=== PATIENT | female | born 1995 | race Caucasian/White ===

== ENCOUNTER 2019-12-27 15:21 | Outpatient (CLI) | payer BC, MEDICAID, SELFPAY ==
--- NOTE | ~2019-12-27 | US_ITS ---
EXAMINATION: US OB /maternal detail EXAM DATE: 12/27/2019 16:27 INDICATION: For anatomy, screening. Second trimester. TECHNIQUE: Pelvic obstetrical transabdominal sonogram was performed by a technologist. There are mu ltiple grayscale and Doppler images available for interpretation. There are no earlier studies of th is gestation for comparison. FINDINGS: There is a single fetus identified in vertex presentation with a heart rate of 159 beats pe r minute. The placenta is located in the anterior position. There is no sonographic evidence of retr oplacental hemorrhage identified. BIOMETRIC DATA: Biparietal diameter (BPD): 5.0cm ----------------> 21 weeks 1 day. Head circumference (HC): 17.5 cm ----------------> 20 weeks 0 days. Abdominal circumference (AC): 14.7 cm ----------> 20 weeks 0 days. Femur length (FL): 3.2 cm --------------------------> 20 weeks 0 days. These measurements are concordant. HC/AC ratio is 1.19 (The 5th -- 95th percentile range is 1.07-1.25. Estimated weight is 330 g +/- 49 g. This is the 33rd percentile when the currently reported cl inical gestation age 20 weeks 2 days, clinical estimated date of delivery (JERRY-OPE) 05/13 is used. Fet al estimated gestational age based on measurements from this exam is also 20 weeks 2 days, with an es timated date of delivery (JERRY-AUA) 05/13. ANATOMIC SURVEY: The following anatomy is identified and is sonographically normal in appearance: Cerebral ventricles Cerebellum Cisterna magna Nuchal fold CTL-spine Four-chamber heart Diaphragm Stomach Kidneys Bladder Three-vessel cord Cord insertion IMPRESSION: 1. Single fetus in vertex presentation with heart rate 159 beats per minute. 2. Estimated weight of 330 grams, 33rd percentile using the currently reported clinical gestat ion age of 20 weeks 2 days, JERRY(OPE) 05/13/2020. 3. Normal anatomic survey. Reviewed, dictated and finalized at location A. IMPRESSION: 1. Single fetus in vertex presentation with heart rate 159 beats per minute. 2. Estimated weight of 330 grams, 33rd percentile using the currently re ported clinical gestation age of 20 weeks 2 days, JERRY(OPE) 05/13/2020. 3. Normal anatomic survey.
== END 2019-12-27 15:22 | disposition home or self-care (01) ==
PROVIDERS: Visit Provider Nurse Practitioner
DX: Z36.9 Encounter for antenatal screening, unspecified (principal); Z3A.20 20 weeks gestation of pregnancy
CPT/HCPCS: 76805

== ENCOUNTER 2020-02-06 15:51 | Outpatient (CLI) | payer BC, MEDICAID, SELFPAY ==
[2020-02-06 17:32] LABS: Hematocrit 36.1 % (37.0-47.0); Hemoglobin 12.2 g/dL (12.0-15.0)
[2020-02-06 17:43] LABS: Glucose 1 Hour PP 50gm Dose 104 mg/dL
[2020-02-06 18:22] LABS: Vitamin D 25 Hydroxy 47.1 ng/mL
[2020-02-06 18:43] LABS: HIV 1/2 Ab P24 Ag Result Negative (Negative)
== END 2020-02-06 15:52 | disposition home or self-care (01) ==
PROVIDERS: PCP Internal Medicine; Visit Provider Obstetrics & Gynecology Gynecology
DX: Z34.03 Encounter for supervision of normal first pregnancy, third trimester (principal); Z3A.00 Weeks of gestation of pregnancy not specified
CPT/HCPCS: 36415; 82306; 82947; 85014; 85018; 86703; G0432

== ENCOUNTER 2020-03-27 10:36 | Observation (INO) | payer BC, MEDICAID, SELFPAY ==
[2020-03-27 11:15] VITALS: BMI 33.8
--- NOTE | 2020-03-27 11:15 | OBADM ---
This patient, Amber Gaytan, admitted to the OB room 117 at 1036 for observation due to vaginal spotting. Patient/family oriented to hospital policies and general routines including ID bracelet, bed and alarms, visiting hours, pain management, procedures, bathroom and other care routines, personal items, smoking policy, room service/diet, and visiting hours. Patient/Family are encouraged to report perceived risks to care and to ask questions if they do not understand what they are told or what they should do.
[2020-03-27 11:25] VITALS: BP 107/61; PULSE 74; RESP 16; TEMP 36.7
--- NOTE | 2020-04-17 13:47 | PM.OBTRLD ---
OB - Triage/Final Diagnosis Final Diagnosis (1) Spotting affecting : Code(s): O26.859 - Spotting complicating , unspecified trimester Status: Acute
== END 2020-03-27 11:57 | disposition home or self-care (01) ==
PROVIDERS: Admitting Provider Obstetrics & Gynecology; PCP Internal Medicine; Visit Provider Obstetrics & Gynecology
DX: O26.859 Spotting complicating pregnancy, unspecified trimester (principal); Z3A.00 Weeks of gestation of pregnancy not specified
CPT/HCPCS: G0378; G0379

== ENCOUNTER 2020-05-06 17:49 | Inpatient (IN) | payer BC, MEDICAID, SELFPAY ==
[2020-05-06 18:18] VITALS: BP 117/57; PULSE 95
[2020-05-06 18:32] VITALS: BMI 35.0
--- NOTE | 2020-05-06 18:33 | LDADM ---
This patient, Amber Gaytan, was admitted to Labor/Delivery/Recovery 107 on 05/06/20 at 17:49. Plans for labor, pain management and were discussed with patient. Patient/family oriented to hospital policies and general routines including ID bracelet, bed and alarms, visiting hours, pain management, procedures, bathroom and other care routines, personal items, smoking policy, room service/diet and guest tray routines, infant security routines, and visiting hours. Patient/Family are encouraged to report perceived risks to care and to ask questions if they do not understand what they are told or what they should do. See OBIX for further documentation.
[2020-05-06 18:47] LABS: Basophils Percent Auto 0.4 % (0.2-1.2); Eosinophils Absolute Auto 0.1 K/mm3 (0-0.3); Eosinophils Percent Auto 0.6 % (0-4.4); Hematocrit 33.4 % (37.0-47.0); Hemoglobin 11.6 g/dL (12.0-15.0); Immature Granulocyte Absolute 0.15 K/mm3 (0.00-0.031); Immature Granulocyte Percent A 1.6 % (0-0.5); Lymphocytes Absolute Auto 1.71 K/mm3 (0.9-3.2); Lymphocytes Percent Auto 18.3 % (18.3-44.2); Mean Corpuscular HGB Conc 34.7 g/dl (32-36); Mean Corpuscular Hemoglobin 31.7 pg (26-34); Mean Corpuscular Volume 91.3 fl (80-100); Mean Platelet Volume 9.3 fl (7.4-10.4); Monocytes Absolute Auto 0.8 K/mm3 (0.1-0.6); Monocytes Percent Auto 8.9 % (2.6-8.5); Neutrophils Absolute Auto 6.6 K/mm3 (1.3-6.7); Neutrophils Percent Auto 70.2 % (45.5-73.1); Platelet Count Result 378 k/mm3 (150-375); Red Blood Count 3.66 M/mm3 (4.2-5.4); Red Cell Distribution Width 12.8 % (11.5-14.5); White Blood Count 9.3 K/mm3 (4.5-10.0)
[2020-05-06] MEDS: AMPICILLIN 2 GM/NS 100 ML 2 GM/100 ML BAG IVPB (18:56)
[2020-05-06] MEDS: LACTATED RINGERS 1,000 ML 125 ML IV CONT (18:56)
[2020-05-06] MEDS: DINOPROSTONE 10 MG VAG INSERT VAGINAL (18:58)
[2020-05-06 19:01] VITALS: BP 122/65; PULSE 89
[2020-05-06 20:00] VITALS: TEMP 36.6
[2020-05-06 21:01] VITALS: BP 110/53; PULSE 60
[2020-05-06 22:40] VITALS: BP 114/67; PULSE 71
[2020-05-07] VITALS (71 sets, daily range): BP systolic 90–123; BP diastolic 34–79; PULSE 49–179; RESP 16; TEMP 36.6–37.6; O2SAT 99–100
[2020-05-07] MEDS: AMPICILLIN 1 GM/NS 50 ML 1 GM/50 ML BAG IVPB ×3 (00:35→09:00)
[2020-05-07 08:12] LABS: Rapid Plasma Reagin Non-Reactive (NonReactive)
[2020-05-07] MEDS: LACTATED RINGERS 1,000 ML 125 ML IV CONT (08:27)
[2020-05-07] MEDS: OXYTOCIN 30 UNITS/NS 500 ML 30 UNITS/500 ML BAG 6 UNITS IV CONT (08:31)
--- NOTE | 2020-05-07 08:52 | WPDANESEPP ---
Anes - Eval Pre Procedure Procedure: labor epidural Date/Time: 05/07/20 08:52 Preop Diagnosis: labor pain Pre Op Diagnosis: Induction of Labor Patient Data Age: 24 Gender: F Height: 5 ft 2 in Weight: 87 kg Last Vital Signs Temp 36.7 C 05/07/20 06:27 Pulse 59 L 05/07/20 05:18 BP 109/64 05/07/20 05:18 Pulse Ox 100 05/07/20 08:51 Allergies Allergy/AdvReac Type Severity Reaction Status Date / Time No Known Allergies Allergy Verified 04/13/20 13:33 Home Medications Medication Instructions Recorded Confirmed Type PNV cmb#95-ferrous fumarate-FA 1 tablet PO DAILY 03/27/20 03/27/20 History [] Laboratory Tests 05/06/20 05/06/20 05/06/20 18:30 18:30 18:30 WBC 9.3 K/mm3 K/mm3 (4.5-10.0) RBC 3.66 M/mm3 L M/mm3 (4.2-5.4) Hgb 11.6 g/dL L g/dL (12.0-15.0) Hct 33.4 % L % (37.0-47.0) MCV 91.3 fl fl (80-100) MCH 31.7 pg pg (26-34) MCHC 34.7 g/dl g/dl (32-36) RDW 12.8 % % (11.5-14.5) Plt Count 378 k/mm3 H k/mm3 (150-375) MPV 9.3 fl fl (7.4-10.4) Immature Gran % (Auto) 1.6 % H % (0-0.5) Neut % (Auto) 70.2 % % (45.5-73.1) Lymph % (Auto) 18.3 % % (18.3-44.2) [place] % (Auto) 8.9 % H % (2.6-8.5) Eos % (Auto) 0.6 % % (0-4.4) Baso % (Auto) 0.4 % % (0.2-1.2) Lymph # (Auto) 1.71 K/mm3 K/mm3 (0.9-3.2) [place] # (Auto) 0.8 K/mm3 H K/mm3 (0.1-0.6) Eos # (Auto) 0.1 K/mm3 K/mm3 (0-0.3) Baso # (Auto) 0.0 K/mm3 K/mm3 (0.0-0.1) Abs Immat Gran (auto) 0.15 K/mm3 H K/mm3 (0.00-0.031) Absolute Neuts (auto) 6.6 K/mm3 K/mm3 (1.3-6.7) Absolute Nucleated RBC 0.0 K/mm3 K/mm3 (0.0-0.012) Nucleated RBC % 0.0 % % (0.0-0.2) RPR Non-reactive (NonReactive) Blood Type O Positive Antibody Screen Negative Patient hx anesthesia problems: none Family hx anesthesia problems: none [facility] Past Medical History Medical History (Updated 04/17/20 @ 13:48 by Osbaldo Richards MD) Spotting affecting Family History Family History (Updated 04/13/20 @ 13:33 by Ban West RN) Other Unknown family medical history Social History Social History Smoking status: Never smoker Substance use: never Spiritual care concerns: No Exam Day of Procedure 05/07/20 08:52
--- NOTE | 2020-05-07 08:57 | WPDOBADMIT ---
Obstetrics - Admit Note Admission Note: record reviewed. No pertinent additions to the history and/or any subsequent changes in the physical findings that are not consistent with the expected course of the were found. Additions to the history and/or subsequent changes in the physical findings follow. None Here for MIL at 39 wks. Cervix 2/100/-2 AROM with clear fluid. FHTs reactive.
--- NOTE | 2020-05-07 12:23 | P.PCNOB_ITS ---
OB - Delivery Note Procedure Delivery date: 05/07/20 Procedure: events: Labor Induction Intrapartal events: None Induction method: AROM and per pitocin protocol Delivery monitor: external FHT and external uterine Route of delivery: Laceration description: Perineal - 2nd Degree Delivery repair: vicryl (3-0) Specimen: No Estimated blood loss (mL): 300 Anesthesia type: Epidural Disposition: floor [place] Baby Date of : 05/07/20 Weeks of gestation at delivery: 39 Infant gender: Male presentation: vertex position: Right Occiput Anterior Placenta delivery description: Spontaneous cord vessel description: 3 Vessels and Nuchal Cord score one minute: 8 score five minutes: 9
--- NOTE | 2020-05-07 12:25 | P.DS_ITS ---
DS: Admitting Diagnosis Admitting Diagnosis Admitting Diagnosis: Induction of Labor 39 wks DS: Discharge Diagnosis Discharge Diagnosis (1) (normal spontaneous vaginal delivery): Code(s): O80 - Encounter for full-term uncomplicated delivery Status: Acute (2) 39 weeks gestation of : Code(s): Z3A.39 - 39 weeks gestation of Status: Acute OB - DS: Summary OB Procedures : Ultrasound OB Procedures Intrapartum: Spontaneous Vag Delivery OB Procedures: : None Peripartum Data Delivery Method: Natural Vaginal Laceration description: Perineal - 2nd Degree complications: none Status at Discharge Functional status at discharge: independent ambulation Overall status at discharge: patient is progressing back to baseline Time Spent with Patient Time attestation: Total time spent providing and/or coordinating discharge services: DS: Data Data Completed and Pending Labs on day of discharge: Labs from last 24 hours 05/06/20 05/06/20 05/06/20 18:30 18:30 18:30 WBC 9.3 RBC 3.66 L Hgb 11.6 L Hct 33.4 L MCV 91.3 MCH 31.7 MCHC 34.7 RDW 12.8 Plt Count 378 H MPV 9.3 Immature Gran % (Auto) 1.6 H Neut % (Auto) 70.2 Lymph % (Auto) 18.3 [place] % (Auto) 8.9 H Eos % (Auto) 0.6 Baso % (Auto) 0.4 Lymph # (Auto) 1.71 [place] # (Auto) 0.8 H Eos # (Auto) 0.1 Baso # (Auto) 0.0 Abs Immat Gran (auto) 0.15 H Absolute Neuts (auto) 6.6 Absolute Nucleated RBC 0.0 Nucleated RBC % 0.0 RPR Non-reactive Blood Type O Positive Antibody Screen Negative Discharge Plan Discharge Attending physician on discharge: Raina Gan Discharging Clinician: Raina Gan Anticipated Discharge Date/Time: 05/09/20 12:26 Patient Disposition: Home, Self-Care Activity: pelvic rest Diet: regular Patient Instructions: Antibiotic Form Stand Alone Forms: General Discharge Information Follow-up/Referrals: Raina Gan MD [Physician] - 6 Weeks Discharge Medications: No Action PNV cmb#95-ferrous fumarate-FA [] 28 mg iron- 800 mcg Tablet 1 tablet PO DAILY RF: 0 Date of admission: 05/06/20 17:49 Primary Care Provider: Maranda,Jem Fan Admitting Provider: Raina Gan Attending physician on admission: Raina Gan Condition: Stable
[2020-05-07] MEDS: OXYTOCIN 30 UNITS/NS 500 ML 30 UNITS/500 ML BAG 125 UNITS IV CONT (12:52)
--- NOTE | 2020-05-07 15:00 | PC.NURSE ---
Patient transferred to post room #285 via (wheelchair). Support person present. Oriented to unit, room, information board, rooming in, admission packet and security measures. Patient verbalizes understanding.
[2020-05-07] MEDS: ACETAMINOPHEN 325 MG TABLET 650 MG PO (19:55)
[2020-05-07] MEDS: IBUPROFEN 600 MG TABLET PO (19:55)
[2020-05-08] MEDS: IBUPROFEN 600 MG TABLET PO ×3 (05:02→17:17)
[2020-05-08] MEDS: ACETAMINOPHEN 325 MG TABLET 650 MG PO (05:02)
[2020-05-08 05:14] LABS: Hematocrit 28.9 % (37.0-47.0); Hemoglobin 9.8 g/dL (12.0-15.0)
[2020-05-08 09:25] VITALS: BP 122/59; PULSE 69; RESP 18; TEMP 36.2
[2020-05-08] MEDS: DOCUSATE SODIUM 100 MG CAPSULE PO ×2 (10:13→17:16)
[2020-05-08] MEDS: POLYSACCHARIDE IRON COMPLEX 150 MG CAPSULE PO ×2 (10:13→17:16)
--- NOTE | 2020-05-08 10:57 | WPDANLDPN2 ---
Anes-Prog Note L&D Date/Time: 05/08/20 10:57 Comfortable throughout: labor and delivery Neuraxial method: epidural Epidural/Spinal procedure site: clean & non-tender Neuro status: Neuro function grossly intact. Cardiovascular status: normal Respiratory status: normal Airway patency: baseline Mental status: baseline Post-Op hydration status: normal Vital Signs: Last Vital Signs Temp 36.2 C L 05/08/20 09:25 Pulse 69 05/08/20 09:25 Resp 18 05/08/20 09:25 BP 122/59 L 05/08/20 09:25 Pulse Ox 99 05/07/20 15:02 I/O: Intake & Output 05/07/20 05/08/20 05/08/20 23:59 07:59 15:59 Intake Total 500 Balance 500 Patient feedback: Patient satisfied with anesthetic care.
[2020-05-08] MEDS: MEASLES,MUMPS,RUBELLA VACCINE 0.5 ML VIAL SUB-Q (15:36)
[2020-05-08 19:58] VITALS: BP 104/51; PULSE 69; RESP 16; TEMP 36.6
[2020-05-09 07:55] VITALS: BP 123/66; PULSE 75; RESP 16; TEMP 36.9; O2SAT 99
[2020-05-09] MEDS: POLYSACCHARIDE IRON COMPLEX 150 MG CAPSULE PO (08:00)
[2020-05-09] MEDS: IBUPROFEN 600 MG TABLET PO (08:00)
[2020-05-09] MEDS: DOCUSATE SODIUM 100 MG CAPSULE PO (08:00)
--- NOTE | 2020-05-09 13:36 | PM.OBPNVD ---
OB - PN: Subj Subjective Date/time seen: 05/09/20 13:36 Patient comments: no complaints baby status: doing well OB - PN: Obj Data Labs CBC & Chem 7: 05/08/20 05:00 OB - PN A/P Plan day: 2 Plan: routine care, discharge home and follow up 6 weeks Comments: declines bc Time Spent With Patient Time: Total time spent is greater than 50% in coordination of care (as documented) at patient's floor/unit and/or counseling patient: Exam : Bimanual exam- vagina & uterus: other (Uterus firm, nt @U)
[2020-05-10 10:38] VITALS: BP 117/72; PULSE 73; RESP 20; O2SAT 100
== END 2020-05-09 11:58 | disposition home or self-care (01) | DRG 807 ==
LOC: ANHLDR 05-07 12:26 → ANHOB2 05-07 15:03
PROVIDERS: Admitting Provider Obstetrics & Gynecology Gynecology; PCP Internal Medicine; Visit Provider Obstetrics & Gynecology Gynecology
DX: O99.824 Streptococcus B carrier state complicating childbirth (principal); Z37.0 Single live birth; Z3A.39 39 weeks gestation of pregnancy; O36.8330 Maternal care for abnormalities of the fetal heart rate or rhythm, third trimester, not applicable or unspecified; O70.1 Second degree perineal laceration during delivery; O69.81X0 Labor and delivery complicated by cord around neck, without compression, not applicable or unspecified
CPT/HCPCS: 36415; 85014; 85018; 85025; 86592; 86850; 86900; 86901; 90710; A9270; J0290; J2590; J2795; J3010; J7120

== ENCOUNTER 2021-02-21 21:55 | Observation (INO) | payer OTHER, SELFPAY ==
--- NOTE | 2021-02-21 21:55 | OBADM ---
This patient, Amber Gaytan, admitted to the OB room Labor/Delivery/Recovery 105 for observation. Patient/family oriented to hospital policies and general routines including ID bracelet, bed and alarms, visiting hours, pain management, procedures, bathroom and other care routines, personal items, smoking policy, room service/diet, and visiting hours. Patient/Family are encouraged to report perceived risks to care and to ask questions if they do not understand what they are told or what they should do.
[2021-02-21 22:10] VITALS: BMI 38.5
[2021-02-21 22:13] VITALS: RESP 18; TEMP 36.7
--- NOTE | 2021-02-22 07:07 | PM.OBTRLD ---
OB - Triage/Final Diagnosis Visit Information Date of evaluation: 02/21/21 Reason for evaluation: threatened labor Comments/Additional reasons for admission: I have assessed the risk for this patient, Amber Gaytan, and determined that she would benefit from observation care. Evaluation Vital signs: Vital Signs - 24 hr 02/21/21 22:13 Temperature 36.7 C Respiratory Rate 18
== END 2021-02-21 23:04 | disposition home or self-care (01) ==
PROVIDERS: Admitting Provider Student in an Organized Health Care Education/Training Program; Visit Provider Student in an Organized Health Care Education/Training Program
DX: O47.03 False labor before 37 completed weeks of gestation, third trimester (principal); Z3A.33 33 weeks gestation of pregnancy
CPT/HCPCS: G0378; G0379

== ENCOUNTER 2021-03-18 15:30 | Outpatient (RCR) | payer OTHER, SELFPAY ==
[2021-02-13 18:25] VITALS: BP 121/79; PULSE 103
[2021-02-20 16:21] VITALS: BP 117/61; PULSE 95
[2021-02-25 16:34] VITALS: BP 120/62; PULSE 97
[2021-03-04 16:33] VITALS: BP 118/71; PULSE 97
[2021-03-10 17:03] VITALS: BP 127/71; PULSE 84
[2021-03-10 17:06] LABS: Basophils Percent Auto 0.4 % (0.2-1.2); Eosinophils Absolute Auto 0.1 K/mm3 (0-0.3); Eosinophils Percent Auto 0.9 % (0-4.4); Hematocrit 33.8 % (37.0-47.0); Hemoglobin 10.9 g/dL (12.0-15.0); Immature Granulocyte Absolute 0.21 K/mm3 (0.00-0.031); Immature Granulocyte Percent A 2.7 % (0-0.5); Lymphocytes Absolute Auto 1.21 K/mm3 (0.9-3.2); Lymphocytes Percent Auto 15.6 % (18.3-44.2); Mean Corpuscular HGB Conc 32.2 g/dl (32-36); Mean Corpuscular Hemoglobin 29.1 pg (26-34); Mean Corpuscular Volume 90.4 fl (80-100); Mean Platelet Volume 9.6 fl (7.4-10.4); Monocytes Absolute Auto 0.8 K/mm3 (0.1-0.6); Monocytes Percent Auto 9.7 % (2.6-8.5); Neutrophils Absolute Auto 5.5 K/mm3 (1.3-6.7); Neutrophils Percent Auto 70.7 % (45.5-73.1); Nucleated Red Blood Cells Perc 0.3 % (0.0-0.2); Platelet Count Result 299 k/mm3 (150-375); Red Blood Count 3.74 M/mm3 (4.2-5.4); Red Cell Distribution Width 17.6 % (11.5-14.5); White Blood Count 7.8 K/mm3 (4.5-10.0)
[2021-03-10 17:22] LABS: Add Urine Microscopic? YES; Appearance Urine Cloudy (Clear); Bacteria Urine 1+ /hpf; Bilirubin Urine Negative (Negative); Blood Urine Negative (Negative); Color Urine Yellow (Yellow); Glucose Urine UA Negative (Negative); Ketones Urine Negative (Negative); Leukocyte Esterase Ur Negative LEU/UL (NEGATIVE); Mucus Urine Rare /lpf; Nitrate Urine Negative (Negative); Protein Urine 1+ mg/dL (Negative); RBC Urine 0-2 /hpf (0-2); Specific Grav Ur 1.015 (1.001-1.035); Squamous Epithelial Cell Urine Few /hpf (Few); Urobilinogen Urine Negative mg/dL (<2.0)
[2021-03-10 17:23] LABS: Alanine Aminotransferase 19 U/L (4-35); Albumin Level 3.3 g/dL (3.5-5.1); Alkaline Phosphatase 154 U/L (38-126); Anion Gap 6 mmol/L (8-16); Aspartate Amino Transferase 29 U/L (14-36); Bilirubin,Total 0.3 mg/dL (0.2-1.3); Blood Urea Nitrogen 6 mg/dL (7-17); Carbon Dioxide 21 mmol/L (22-30); Chloride 106 mmol/L (98-107); Estimated Glomerular Filt Rate > 60; Glucose 101 mg/dL (65-105); Potassium 3.7 mmol/L (3.4-5.0); Sodium 133 mmol/L (137-145); Uric Acid 3.6 mg/dL (2.5-7.5)
[2021-03-10 17:34] LABS: Creatinine Urine 108.5 mg/dL; Total Protein Urine Random 22 mg/dL
--- NOTE | 2021-03-10 17:42 | PC.NURSE ---
Dr. Hart returned call and informed of reactive NST, lab results, and BP's. OK for pt to go home. Pt given preeclampsia precautions, handout given, and routine NST instructions. Pt verbalizes understanding.
[2021-03-18 16:17] VITALS: BP 123/64; PULSE 73
== END 2021-03-26 08:03 | disposition home or self-care (01) ==
LOC: ANHOBOP 15:30
PROVIDERS: Visit Provider Student in an Organized Health Care Education/Training Program
DX: O30.003 Twin pregnancy, unspecified number of placenta and unspecified number of amniotic sacs, third trimester (principal); Z3A.32 32 weeks gestation of pregnancy; Z3A.33 33 weeks gestation of pregnancy; Z3A.34 34 weeks gestation of pregnancy; Z3A.35 35 weeks gestation of pregnancy; Z3A.37 37 weeks gestation of pregnancy
CPT/HCPCS: 36415; 59025; 80053; 81001; 82570; 84156; 84550; 85025; 87086

== ENCOUNTER 2021-03-25 05:00 | Inpatient (IN) | payer OTHER, SELFPAY ==
[2021-03-25] VITALS (202 sets, daily range): BP systolic 97–156; BP diastolic 36–90; PULSE 61–162; RESP 16–18; TEMP 36.3–36.9; O2SAT 89–100; BMI 40.3
--- NOTE | 2021-03-25 05:28 | LDADM ---
This patient, Amber Gaytan, was admitted to Labor/Delivery/Recovery 102 on 03/25/21 at 05:00. Plans for labor, pain management and were discussed with patient. Patient/family oriented to hospital policies and general routines including ID bracelet, bed and alarms, visiting hours, pain management, procedures, bathroom and other care routines, personal items, smoking policy, room service/diet and guest tray routines, security routines, and visiting hours. Patient/Family are encouraged to report perceived risks to care and to ask questions if they do not understand what they are told or what they should do. See OBIX for further documentation.
[2021-03-25] MEDS: OXYTOCIN 30 UNITS/NS 500 ML 30 UNITS/500 ML BAG IV CONT (05:40)
[2021-03-25] MEDS: LACTATED RINGERS 1,000 ML 125 ML IV CONT ×3 (05:40→09:00)
[2021-03-25 05:51] LABS: Basophils Percent Auto 0.5 % (0.2-1.2); Eosinophils Absolute Auto 0.1 K/mm3 (0-0.3); Eosinophils Percent Auto 1.2 % (0-4.4); Hematocrit 34.1 % (37.0-47.0); Hemoglobin 10.8 g/dL (12.0-15.0); Immature Granulocyte Absolute 0.13 K/mm3 (0.00-0.031); Immature Granulocyte Percent A 1.6 % (0-0.5); Lymphocytes Absolute Auto 1.68 K/mm3 (0.9-3.2); Lymphocytes Percent Auto 20.3 % (18.3-44.2); Mean Corpuscular HGB Conc 31.7 g/dl (32-36); Mean Corpuscular Hemoglobin 28.8 pg (26-34); Mean Corpuscular Volume 90.9 fl (80-100); Monocytes Absolute Auto 0.8 K/mm3 (0.1-0.6); Monocytes Percent Auto 9.2 % (2.6-8.5); Neutrophils Absolute Auto 5.6 K/mm3 (1.3-6.7); Neutrophils Percent Auto 67.2 % (45.5-73.1); Nucleated Red Blood Cells Perc 0.2 % (0.0-0.2); Platelet Count Result 341 k/mm3 (150-375); Red Blood Count 3.75 M/mm3 (4.2-5.4); Red Cell Distribution Width 16.2 % (11.5-14.5); White Blood Count 8.3 K/mm3 (4.5-10.0)
--- NOTE | 2021-03-25 06:51 | WPDHPUPDATE1 ---
History and Physical Update Update Date/Time: 03/25/21 10:51 25 yo at 38w0d with Di/Di twin who presents for IOL. SHe denies any regular contractions, vaignal bleeding or leakage of fluid. She endorses good movement x2. History and Physical has been reviewed, including an updated exam of the patient. There are NO changes in the patient's condition. Risks, benefits, and alternatives have been discussed and questions answered. Patient agrees to proceed with procedure. A/P: 25 yo at 38w0d Di/Di twin EFW: baby A: 2834 g Baby B: 2720 g (03/18/21) admit to L&D routine admission orders Rh+ GBS neg vtx/vtx presentation of BSUS cvx /-3 plan for pitocin induction continuous EFM
--- NOTE | 2021-03-25 07:46 | P.PNAN_ITS ---
Anes - Eval Pre Procedure Procedure: labor epidural Date/Time: 03/25/21 07:46 Surgeon: ralf Preop Diagnosis: pain during labor Pre Op Diagnosis: Induction of Labor Patient Data Age: 25 Gender: F Height: 1.57 m Weight: 100 kg Last Vital Signs Temp 36.3 C L 03/25/21 05:25 Pulse 104 H 03/25/21 07:44 Resp 18 03/25/21 05:25 BP 123/55 L 03/25/21 07:44 Pulse Ox 98 03/25/21 07:44 Allergies Allergy/AdvReac Type Severity Reaction Status Date / Time No Known Allergies Allergy Verified 04/13/20 13:33 Home Medications Medication Instructions Recorded Confirmed Type PNV cmb#95-ferrous fumarate-FA 1 tablet PO DAILY 02/21/21 03/13/21 History [] nygqsnsnsy-ognhceqbjnbtg-sbyh 1 tablet PO Q6H PRN 02/21/21 03/13/21 History ferrous sulfate 325 mg PO DAILY 02/21/21 03/13/21 History Laboratory Tests 03/25/21 03/25/21 05:41 05:41 WBC 8.3 K/mm3 K/mm3 (4.5-10.0) RBC 3.75 M/mm3 L M/mm3 (4.2-5.4) Hgb 10.8 g/dL L g/dL (12.0-15.0) Hct 34.1 % L % (37.0-47.0) MCV 90.9 fl fl (80-100) MCH 28.8 pg pg (26-34) MCHC 31.7 g/dl L g/dl (32-36) RDW 16.2 % H % (11.5-14.5) Plt Count 341 k/mm3 k/mm3 (150-375) MPV 10.0 fl fl (7.4-10.4) Immature Gran % (Auto) 1.6 % H % (0-0.5) Neut % (Auto) 67.2 % % (45.5-73.1) Lymph % (Auto) 20.3 % % (18.3-44.2) [place] % (Auto) 9.2 % H % (2.6-8.5) Eos % (Auto) 1.2 % % (0-4.4) Baso % (Auto) 0.5 % % (0.2-1.2) Lymph # (Auto) 1.68 K/mm3 K/mm3 (0.9-3.2) [place] # (Auto) 0.8 K/mm3 H K/mm3 (0.1-0.6) Eos # (Auto) 0.1 K/mm3 K/mm3 (0-0.3) Baso # (Auto) 0.0 K/mm3 K/mm3 (0.0-0.1) Abs Immat Gran (auto) 0.13 K/mm3 H K/mm3 (0.00-0.031) Absolute Neuts (auto) 5.6 K/mm3 K/mm3 (1.3-6.7) Absolute Nucleated RBC 0.0 K/mm3 K/mm3 (0.0-0.012) Nucleated RBC % 0.2 % % (0.0-0.2) RPR Pending Patient hx anesthesia problems: none Family hx anesthesia problems: none [facility] Past Medical History Medical History (Updated 05/07/20 @ 12:25 by Raina Gan MD) Spotting affecting Family History Family History Other Unknown family medical history Social History Social History Smoking status: Never smoker Substance use: never Gender identity (if verbalized by the patient): Female Spiritual care concerns: No Exam Day of Procedure 03/25/21 07:46
--- NOTE | 2021-03-25 08:41 | PM.OBPNLAB ---
Pain Control Date/time seen: 03/25/21 0840 Pain control: epidural Pelvic Exam Dilation (cm): 5 Effacement (%): 70 station: -3 Amniotic membrane status: Intact Contractions Monitor mode: External Status status: Category l (x2) Assessment and Plan Pitocin rate (mU/min): 8 Assessment: induction ongoing Plan: begin patient augmentation (AROM for clear fluid, IUPC placed)
[2021-03-25 10:04] LABS: Rapid Plasma Reagin Non-Reactive (NonReactive)
[2021-03-25] MEDS: LORATADINE 10 MG TABLET PO (10:24)
--- NOTE | 2021-03-25 18:45 | P.PCNOB_ITS ---
OB - Delivery Note Procedure Delivery date: 03/25/21 Intrapartal events: None Induction method: per misoprostol protocol Delivery augmentation: rupture of membranes Delivery monitor: external FHT and internal uterine Route of delivery: Episiotomy description: None Laceration Description: Perineal - 2nd Degree Delivery repair: vicryl Specimen: Yes (placenta x2) Quantitative Blood Loss (ml): 350 Anesthesia type: Epidural Disposition: floor Narrative: Once the patient was found to have complete cervical dilation, + 1 station, and comfortable with her epidural, she was taken to the operating room. The room was prepared with a double set- up, ultrasound machine present, double nursing staff, and team. Patient positioned in stirrups with the bed broken, dorsal lithotomy. Her perineum was prepped and draped in the usual fashion. The perineal body was normal length. Pelvis felt to be adequate. She pushed well and over several contractions delivered spontaneously from the PASHA position. A nuchal cord x1 was noted and was delivered through. The cord was clamped and cut, and the baby was handed to the waiting staff. Immediately, the heart rate for Twin B was identified and found to be in the 140s with moderate variability. Bedside ultrasound confirmed a vertex presentation. The cervix was still completely dilated, and the heart tones were reassuring. Amniotomy for Twin B was performed with clear fluid returned. Cervix was noted to still be completely dilated. With the next contraction, the patient was able to push and bring Twin B to the perineum. With the next contr action, Twin B was delivered from KIMBERLY position atraumatically. The cord was clamped and cut and the was handed off to the team. A segment of cord was taken for gases on both, and sample collected as above. A second degree midline perineal lac was noted. The placentas delivered spontaneously and were found to be intact. Routine repair of the 2nd degree laceration with 3-0 vicryl was performed. All sponge, lap, and needle counts correct x 2. Patient taken out of lithotomy position and tolerated procedure very well. NICU present for delivery, and the fetuses were taken to the NICU for prematurity. Perineal care & instructions reinforced. [place] Baby Weeks of gestation at delivery: 38 presentation: vertex position: Left Occiput Anterior Placenta delivery description: Spontaneous cord vessel description: Nuchal Cord score one minute: 9 score five minutes: 9 Twins 1: Date of : 03/25/21 Time of : 18:13 Weeks of gestation at delivery: 38 gender: Female Weight (pounds): 6 Weight (ounces): 5 presentation: vertex position: Left Occiput Anterior Placental delivery description: Spontaneous cord vessel description: Nuchal Cord score one minute: 9 score five minutes: 9 2: Date of : 03/25/21 Time of : 18:21 Weeks of gestation at delivery: 38 Infant gender: Female Weight (pounds): 6 Weight (ounces): 1 presentation: vertex position: Right Occiput Anterior Placental delivery description: Spontaneous cord vessel description: 3 Vessels score one minute: 8 score five minutes: 9
[2021-03-25] MEDS: OXYTOCIN 30 UNITS/NS 500 ML 30 UNITS/500 ML BAG 125 UNITS IV CONT (18:57)
[2021-03-25] MEDS: IBUPROFEN 600 MG TABLET PO (19:20)
--- NOTE | 2021-03-25 21:26 | OBPPTRN ---
Patient transferred to post room #277 via wheelchair. Support person present. Oriented to unit, room, information board, rooming in, admission packet and security measures. Patient verbalizes understanding.
[2021-03-26 00:10] VITALS: BP 136/78; PULSE 86; RESP 16; TEMP 37.1; O2SAT 99
[2021-03-26] MEDS: ACETAMINOPHEN 325 MG TABLET 650 MG PO ×2 (00:14→19:49)
[2021-03-26 04:30] VITALS: BP 143/75; PULSE 92; RESP 16; TEMP 37; O2SAT 98
[2021-03-26] MEDS: IBUPROFEN 600 MG TABLET PO ×3 (04:30→19:50)
[2021-03-26 05:51] LABS: Hematocrit 29.5 % (37.0-47.0); Hemoglobin 9.2 g/dL (12.0-15.0)
--- NOTE | 2021-03-26 07:17 | PM.OBPNVD ---
OB - PN: Subj Subjective Date/time seen: 03/26/21 07:17 Patient comments: no complaints, pain well controlled and tolerating diet [place] feeding status: exclusively breast feeding Narrative: patient doing well this AM. No complaints. Pt reports a lot of pelvic pressure when walking. She reports minimal bleeding. She is ambulating and voiding without difficulty. She is tolerating PO. She denies N/V, fever, chills. OB - PN: Obj Data Labs CBC & Chem 7: 03/26/21 04:42 Labs: Laboratory Results - last 24 hr 03/25/21 03/25/21 03/26/21 05:41 05:41 04:42 Hgb 9.2 L Hct 29.5 L RPR Non-reactive Blood Type O Positive Antibody Screen Negative OB - PN A/P Plan day: 1 Plan: routine care Comments: patient doing well H/H 9., will start iron supplementation continue routine care Time Spent With Patient Time: Total time spent is greater than 50% in coordination of care (as documented) at patient's floor/unit and/or counseling patient: Time with patient: less than 15 minutes Review of Systems Review of Systems: All systems reviewed & are unremarkable except as noted in HPI and below Exam Const: General: comfortable and no acute distress Resp: Effort & Inspection: normal respiratory effort Cardio: Rate: regular rate GI: GI Palp: Yes Soft to palpation and No Tenderness to palpation present (GI) Auscultation: normal bowel sounds Other: fundus firm and below umbilicus. Psych: Affect: normal affect
[2021-03-26 08:00] VITALS: BP 130/79; PULSE 92; RESP 18; TEMP 36.4
[2021-03-26] MEDS: DOCUSATE SODIUM 100 MG CAPSULE PO ×2 (08:34→15:06)
[2021-03-26] MEDS: POLYSACCHARIDE IRON COMPLEX 150 MG CAPSULE PO (08:34)
[2021-03-26 12:18] VITALS: BP 129/78; PULSE 85; RESP 16; TEMP 37.1; O2SAT 96
[2021-03-26 15:10] VITALS: BP 141/83; PULSE 87; RESP 16; TEMP 36.4; O2SAT 99
[2021-03-26 20:00] VITALS: BP 119/69; PULSE 83; RESP 16; TEMP 36.7; O2SAT 99
[2021-03-27] MEDS: ACETAMINOPHEN 325 MG TABLET 650 MG PO (05:22)
[2021-03-27] MEDS: IBUPROFEN 600 MG TABLET PO (05:22)
[2021-03-27] MEDS: TETANUS,DIPHTHERIA,AC PERTUSSIS ADULT (0.5 ML) BOOSTRIX IM (05:22)
[2021-03-27] MEDS: DOCUSATE SODIUM 100 MG CAPSULE PO (06:51)
[2021-03-27 07:01] VITALS: BP 117/64; PULSE 60; RESP 18; TEMP 36.9
--- NOTE | 2021-03-27 07:23 | PM.OBDSVD ---
DS: Admitting Diagnosis Admitting Diagnosis Admitting Diagnosis: di/di twin gestation at term OB - DS: Summary OB Procedures : None OB Procedures Intrapartum: Spontaneous Vag Delivery OB Procedures: : None Status at Discharge Functional status at discharge: independent ambulation Overall status at discharge: patient is back to baseline Time Spent with Patient Time attestation: Total time spent providing and/or coordinating discharge services: Time spent: Less than 30 minutes Exam Const: General: comfortable and no acute distress Resp: Effort & Inspection: normal respiratory effort Auscultation: clear to auscultation bilaterally Cardio: Rate: regular rate GI: GI Palp: Yes Soft to palpation Auscultation: normal bowel sounds Other: Fundus firm below umbilicus Psych: Appearance: grossly normal Mental Status: mental status grossly normal Affect: normal affect DS: Data Data Completed and Pending Pending studies at discharge: Pending at discharge 03/25/21 18:27 Surgical [PTH] Routine Discharge Plan Discharge Discharging Clinician: Rich Hart Patient Disposition: Home, Self-Care Activity: as tolerated and pelvic rest Diet: regular Discharge Instructions: call or return for temperature >100.4, bleeding >2 pads/hr for 2 hrs, pain not controlled with medications, signs/symptoms of mastitis Patient Instructions: Antibiotic Form, Vaginal Delivery (DC) Stand Alone Forms: General Discharge Information Follow-up/Referrals: Rich Hart MD [Physician] - Discharge Medications: New ibuprofen 600 mg Tablet 600 mg PO Q6H PRN (Reason: Cramping) Qty: 30 RF: 0 polysaccharide iron complex 150 mg iron Capsule 150 mg PO BIDWM Qty: 60 RF: 0 acetaminophen [Mapap (acetaminophen)] 325 mg Tablet 650 mg PO Q6H PRN (Reason: Mild Pain (1-3) Or Headache) Qty: 30 RF: 0 Dermoplast (with menthol) 20-0.5 % Aerosol 1 spray topical PRN PRN (Reason: Perineal Discomfort) Qty: 56 RF: 0 Continued ferrous sulfate 325 mg (65 mg iron) tablet 325 mg PO DAILY RF: 0 PNV cmb#95-ferrous fumarate-FA [] 28 mg iron- 800 mcg Tablet 1 tablet PO DAILY RF: 0 pxalzivvan-kdmmjohnlxmij-adwc 50-325-40 mg tablet 1 tablet PO Q6H PRN (Reason: Headache) RF: 0 Date of admission: 03/25/21 05:00 Primary Care Provider: Maranda,Jem Fan Admitting Provider: Rich Hart Attending physician on admission: Rich Hart Condition: Stable
--- NOTE | 2021-03-27 09:00 | PC.NURSE ---
Patient viewed the discharge video Mother & Baby Care, The First Two Weeks . Patient was given the opportunity and encouraged to ask questions. Patient verbalized understanding of information shared and has been given the mother/baby guide for home reference.
[2021-03-28 09:47] VITALS: BP 132/77; PULSE 86; RESP 20; TEMP 37.2; O2SAT 100
== END 2021-03-27 11:29 | disposition home or self-care (01) | DRG 560 ==
LOC: ANHLDR 05:03 → ANHOB2 21:28
PROVIDERS: Admitting Provider Student in an Organized Health Care Education/Training Program; PCP Internal Medicine; Visit Provider Student in an Organized Health Care Education/Training Program
DX: O30.043 Twin pregnancy, dichorionic/diamniotic, third trimester (principal); Z37.2 Twins, both liveborn; Z3A.38 38 weeks gestation of pregnancy; O70.0 First degree perineal laceration during delivery; O36.8330 Maternal care for abnormalities of the fetal heart rate or rhythm, third trimester, not applicable or unspecified
CPT/HCPCS: 36415; 85014; 85018; 85025; 86592; 86850; 86900; 86901; 88307; 90715; A9270; J2590; J2795; J7120

== ENCOUNTER 2022-03-28 21:26 | Emergency (ER) | payer OTHER, SELFPAY ==
--- NOTE | ~2022-03-28 | US_ITS ---
US OB <=14 wk fetus w TV DATE: 03/28/2022 23:06 INDICATION: Vaginal bleeding, cramping TECHNIQUE: Real-time imaging via transabdominal and transvaginal approaches COMPARISON: None FINDINGS: The uterus measures approximately 8.4 centers height, 3.8 cm anteroposterior dimension cent ral endometrial echo complex measures up to 4.2 mm. No intrauterine gestational sac is identified. No ovarian mass lesion is noted on either side. No abnormal free fluid collection is detected. IMPRESSION: No significant abnormality; no intrauterine or extrauterine gestation is identified. Reviewed, dictated and finalized at [facility]. Reviewed, dictated and finalized at [facility]. IMPRESSION: No significant abnormality; no intrauterine or extrauterine gestati on is identified.
[2022-03-28 21:30] VITALS: BP 131/81; PULSE 76; RESP 18; TEMP 36.6; O2SAT 100
--- NOTE | 2022-03-28 22:06 | ED.FEMALEGU ---
HPI - Female Genitourinary General Chief complaint: Vaginal Bleeding Stated complaint: 4 WEEKS PREG/ VAGINAL BLEEDING Time Seen by Provider: 03/28/22 21:53 History of Present Illness HPI Narrative: Patient is a 26-year-old female, , currently about 5 weeks by LMP here for evaluation of vaginal bleeding and lower abdominal cramping. States that she began to bleed yesterday like a normal menstrual cycle that has continued into today. She states today that she has developed some lower abdominal cramping that she likens to a period cramp. She took a test 5 days ago that was positive. Has not yet established with an OB doctor had an ultrasound but did see Dr. Hart in previous pregnancies. Denies syncope, lightheadedness, leg swelling, headaches, nausea, vomiting. Related Data Home Medications Medication Instructions Recorded Confirmed [id number]-[id number]-hxsropdh 1 tablet PO Q6H PRN Headache 02/21/21 03/13/21 50 mg-325 mg-40 mg tablet ferrous sulfate 325 mg (65 mg 325 mg PO DAILY 02/21/21 03/13/21 iron) tablet vit no.95-ferrous 1 tablet PO DAILY 02/21/21 03/13/21 fumarate 28 mg-folic acid 800 mcg tablet () Allergies Allergy/AdvReac Type Severity Reaction Status Date / Time No Known Allergies Allergy Verified 04/13/20 13:33 Review of Systems Review of Systems: Gen.: Denies fevers or chills Eyes: Denies eye pain or visual change ENT: Denies congestion Respiratory: Denies shortness of breath or cough CV: Denies chest pain or palpitations GI: Reports lower abdominal pain. Denies nausea, emesis or diarrhea reports vaginal bleeding Musculoskeletal: Denies back pain or muscle pain Neuro: Denies numbness, tingling, weakness or focal weakness Skin: Denies rash Except as documented, all other systems reviewed and negative FOR[facility]LY [facility] Past Medical History Medical History Spotting affecting Family History Family History Other Unknown family medical history Social History Social History Smoking status: Never smoker Substance use: never Gender identity (if verbalized by the patient): Female Spiritual care concerns: No Exam Narrative: APPEARANCE: Well appearing, no pain in distress, well-nourished. Head: Normocephalic and atraumatic. EYES: PERRLA/EOMI, conjunctivae clear NOSE: No nasal drainage EARS: External ear normal in appearance THROAT: Oropharynx is clear. Mucous membranes are moist. NECK: Supple. No adenopathy, no masses. RESPIRATORY: Airway patent, respirations nonlabored. Clear to auscultation bilaterally, no rales, rhonchi, wheezing. : Exam performed with float tender Adolfoa, cervical os closed, small amounts of blood noted in vaginal vault CARDIOVASCULAR: Regular rate and rhythm without murmurs, rubs, or gallops. ABDOMINAL: Normoactive bowel sounds. Soft, nontender, nondistended. No rebound tenderness or guarding. MUSCULOSKELETAL: Extremities are warm and well-perfused. Moves all extremities well. No edema. NEURO: Normal speech. No focal neurologic deficits. SKIN: Skin is warm and dry. No rashes. PSYCHIATRIC: Normal affect/mood. Course Consultations Consultation #1: discussed with dr. Mackey, line erector, will see in office for serial quant in 2-3 days Date: 03/29/22 Time: 00:24 Vital Signs Vital signs: Vital Signs Temperature 97.8 F 03/28/22 21:30 Pulse Rate 76 03/28/22 21:30 Respiratory Rate 18 03/28/22 21:30 Blood Pressure 131/81 03/28/22 21:30 Pulse Oximetry 100 03/28/22 21:30 Oxygen Delivery Room Air 03/28/22 21:30 Temperature 97.8 F 03/28/22 21:30 Pulse Rate 76 03/28/22 21:30 Respiratory Rate 18 03/28/22 21:30 Blood Pressure 131/81 03/28/22 21:30 Pulse Oximetry 100 03/28/22 21:30 Oxygen Delivery Room Air 03/28/22 21:30 MDM - Female Genitourinary MDM Na
[2022-03-28 22:13] LABS: Basophils Absolute Auto 0.1 K/mm3 (0.0-0.1); Basophils Percent Auto 0.8 % (0.2-1.2); Eosinophils Absolute Auto 0.2 K/mm3 (0-0.3); Eosinophils Percent Auto 2.7 % (0-4.4); Hematocrit 36.9 % (37.0-47.0); Hemoglobin 12.6 g/dL (12.0-15.0); Immature Granulocyte Absolute 0.02 K/mm3 (0.00-0.031); Immature Granulocyte Percent A 0.3 % (0-0.5); Lymphocytes Absolute Auto 2.42 K/mm3 (0.9-3.2); Mean Corpuscular HGB Conc 34.1 g/dl (32-36); Mean Corpuscular Hemoglobin 31.1 pg (26-34); Mean Corpuscular Volume 91.1 fl (80-100); Mean Platelet Volume 8.7 fl (7.4-10.4); Monocytes Absolute Auto 0.6 K/mm3 (0.1-0.6); Monocytes Percent Auto 9.1 % (2.6-8.5); Neutrophils Absolute Auto 3.1 K/mm3 (1.3-6.7); Neutrophils Percent Auto 49.1 % (45.5-73.1); Platelet Count Result 358 k/mm3 (150-375); Red Blood Count 4.05 M/mm3 (4.2-5.4); Red Cell Distribution Width 11.9 % (11.5-14.5); White Blood Count 6.4 K/mm3 (4.5-10.0)
[2022-03-28 22:41] LABS: Beta HCG Quantitative 47.73 mIU/ML
== END 2022-03-29 00:44 | disposition home or self-care (01) ==
PROVIDERS: Emergency Provider Emergency Medicine
DX: O20.9 Hemorrhage in early pregnancy, unspecified (principal); Z3A.01 Less than 8 weeks gestation of pregnancy
CPT/HCPCS: 36415; 76801; 76817; 84702; 85025; 85461; 99284

== ENCOUNTER 2022-04-04 12:37 | Emergency (ER) | payer OTHER, SELFPAY ==
--- NOTE | ~2022-04-04 | US_ITS ---
EXAMINATION: US OB transvaginal INDICATION: Bleeding, cramping. TECHNIQUE: Sonography of the pelvis was performed by transabdominal and transvaginal techniques. COMPARISON: None. LMP 02/24/2022. GA by LMP 5 weeks 4 days. JERRY by LMP 12/01/2022. RESULT: Uterus: - Orientation: Anteverted - Size: 8.2 x 5.3 x 4.6 cm - Myometrium: Homogeneous echogenicity. Cervical length 3.7 cm Gestation: - Intrauterine gestational sac: Not seen Right ovary: - Size : 4.0 x 2.6 x 2.6 cm - Complex cyst in the right ovary measuring up to 3.1 cm. Left ovary: - Size: 1.9 x 1.3 x 1.6 cm - Normal sonographic appearance with physiologic follicles. Pelvis free fluid: Moderate volume free pelvic fluid IMPRESSION: Positive test with no intrauterine gestational sac visualized. Findings represent pregnanc y of unknown location. Differential diagnosis includes early normal, failed early, or ectopic pregna ncy. Recommend follow-up serial beta-hCG values. Ultrasound follow-up should be considered as clini prema warranted. Complex 3.1 cm right ovarian lesion, most likely represents a hemorrhagic or corpus luteal cyst, ovar bettie ectopy is much less likely but remains in the differential. Reviewed, dictated and finalized at [facility]. IMPRESSION: Positive test with no intrauterine gestational sac visualized. Findi ngs represent of unknown location. Differential diagnosis includes e toya normal, failed early, or ectopic . Recommend follow-up serial be ta-hCG values. Ultrasound follow-up should be considered as clinically warrant ed. Complex 3.1 cm right ovarian lesion, most likely represents a hemorrhagic or co rpus luteal cyst, ovarian ectopy is much less likely but remains in the differe ntial.
[2022-04-04 12:38] VITALS: BP 117/58; PULSE 71; RESP 16; TEMP 36.8; O2SAT 99
[2022-04-04 13:26] LABS: Basophils Percent Auto 0.7 % (0.2-1.2); Eosinophils Absolute Auto 0.1 K/mm3 (0-0.3); Eosinophils Percent Auto 1.8 % (0-4.4); Hemoglobin 12.7 g/dL (12.0-15.0); Immature Granulocyte Absolute 0.01 K/mm3 (0.00-0.031); Immature Granulocyte Percent A 0.2 % (0-0.5); Lymphocytes Absolute Auto 1.79 K/mm3 (0.9-3.2); Mean Corpuscular HGB Conc 33.4 g/dl (32-36); Mean Corpuscular Hemoglobin 30.8 pg (26-34); Mean Corpuscular Volume 92.2 fl (80-100); Mean Platelet Volume 8.6 fl (7.4-10.4); Monocytes Absolute Auto 0.5 K/mm3 (0.1-0.6); Monocytes Percent Auto 8.6 % (2.6-8.5); Neutrophils Absolute Auto 3.5 K/mm3 (1.3-6.7); Neutrophils Percent Auto 58.7 % (45.5-73.1); Platelet Count Result 345 k/mm3 (150-375); Red Blood Count 4.12 M/mm3 (4.2-5.4); Red Cell Distribution Width 11.7 % (11.5-14.5)
[2022-04-04 13:53] LABS: Beta HCG Quantitative 429.74 mIU/ML
--- NOTE | 2022-04-04 13:54 | ED.PREGNANCY ---
HPI - General Chief complaint: Vaginal Bleeding Stated complaint: vag bleed-preg Time Seen by Provider: 04/04/22 13:02 History of Present Illness HPI Narrative: Patient is a 26-year-old female about 6 weeks by last menstrual cycle here for evaluation of intense vaginal cramping and vaginal bleeding for the past 5 hours. Notes that her pain is in her lower abdomen, is intermittent in nature, denies provoking factors. She called her ob upon symptom onset, and was told to rest and take Tylenol. she decided to come to the ED when she began to bleed; notes light vaginal spotting. she was seen here last week for the same, and her ultrasound was inconclusive for intrauterine or extrauterine , and was told to follow-up on her quant levels, as it was only 47 at that time. Patient states that her quant increased to 97 4 days ago, and supposed to have another level drawn in 2 days. Her blood type is O+. Does note some vaginal discharge over the past several days. Related Data Home Medications Medication Instructions Recorded Confirmed No Home Medications 04/04/22 04/04/22 Allergies Allergy/AdvReac Type Severity Reaction Status Date / Time No Known Allergies Allergy Verified 04/04/22 12:37 Review of Systems Review of Systems: Gen: Denies fevers or chills Eyes: Denies eye pain or visual change ENT: Denies congestion Respiratory: Denies shortness of breath or cough CV: Denies chest pain or palpitations GI: reports lower abdominal pain. Denies nausea, emesis or diarrhea reports vaginal bleeding Musculoskeletal: Denies back pain or muscle pain Neuro: Denies numbness, tingling, weakness or focal weakness Skin: Denies rash Except as documented, all other systems reviewed and negative PMFSH Past Medical History Medical History Spotting affecting Family History Family History Other Unknown family medical history Social History Social History Smoking status: Never smoker Substance use: never Gender identity (if verbalized by the patient): Female Spiritual care concerns: No Exam Narrative: APPEARANCE: Well appearing, no pain in distress, well-nourished. Head: Normocephalic and atraumatic. EYES: PERRLA/EOMI, conjunctivae clear NOSE: No nasal drainage EARS: External ear normal in appearance THROAT: Oropharynx is clear. Mucous membranes are moist. NECK: Supple. No adenopathy, no masses. RESPIRATORY: Airway patent, respirations nonlabored. Clear to auscultation bilaterally, no rales, rhonchi, wheezing. CARDIOVASCULAR: Regular rate and rhythm without murmurs, rubs, or gallops. ABDOMINAL: Tender to palpation in lower abdomen. Normoactive bowel sounds. Soft. No rebound tenderness or guarding. MUSCULOSKELETAL: Extremities are warm and well-perfused. Moves all extremities well. No edema. : exam performed with operations trainer radhika, scant amount of blood noted in vaginal vault, no vaginal discharge noted NEURO: Normal speech. No focal neurologic deficits. SKIN: Skin is warm and dry. No rashes. PSYCHIATRIC: Normal affect/mood. Course Consultations Consultation #1: Discussed case with Dr. Hart, [employer] EXPEDITER on-call, he will come and evaluate the patient in the emergency department. Date: 04/04/22 Time: 15:48 Consultation #2: Discussed case with Dr. Hart in the ED, patient feeling improved, will see in office this week for serial hcg levels, may be candidate for methotrexate and will call in prescription for metronidazole Date: 04/04/22 Time: 16:33 Vital Signs Vital signs: Vital Signs Temperature 98.2 F 04/04/22 12:38 Pulse Rate 71 04/04/22 12:38 Respiratory Rate 16 04/04/22 12:38 Blood Pressure 117/58 L 04/04/22 12:38 Pulse Oximetry 99 04/04/22 12:38 Temperature 98.2 F 04/04/22 12:38 Pulse Rate 81 04/04/22 16:52 Respiratory Rate
--- NOTE | 2022-04-04 14:05 | PC.NURSE ---
Pt in US
[2022-04-04 14:15] LABS: Alanine Aminotransferase 21 U/L (6-35); Albumin Level 4.3 g/dL (3.5-5.1); Alkaline Phosphatase 49 U/L (38-126); Anion Gap 7 mmol/L (8-16); Aspartate Amino Transferase 22 U/L (14-36); Bilirubin,Total 0.9 mg/dL (0.2-1.3); Blood Urea Nitrogen 12 mg/dL (7-17); Calcium 8.9 mg/dL (8.4-10.2); Carbon Dioxide 22 mmol/L (22-30); Chloride 107 mmol/L (98-107); Estimated CRCL calculation 103 ml/min; Estimated Glomerular Filt Rate > 60; Glucose 95 mg/dL (65-110); Potassium 3.9 mmol/L (3.4-5.0); Sodium 136 mmol/L (137-145)
[2022-04-04] MEDS: ACETAMINOPHEN 500 MG TABLET 1000 MG PO (16:07)
--- NOTE | 2022-04-04 16:28 | WPDCN ---
Assessment and Plan Assessment and plan (1) of unknown anatomic location: Code(s): O36.80X0 - with inconclusive viability, not applicable or unspecified Status: Acute Assessment and Plan: Pt presents with pelvic pain Pt has been trending Beta HCG outpatient. HCG has trended from 47 to 93 to 429. Pelvic US shows no intrauterine . There is a R ovarian cystic structure possibly corpus luteum vs ectopic Pt hemodynamically stable Non-acute abdomen on exam Beta HCG still below threshold for US findings. Pt clinically stable and agreeable with plan for discharge risks of ectopic discussed at length will treat vaginal discharge with metronidazole Pt has outpatient follow up Wednesday HPI Data of Consult Date/Time: 04/04/22 16:28 Primary Care Provider: [employer]INE PHYSICIAN Consult Narrative Narrative: Amber Gaytan is a 26 year old who presents to the ED complaining of pelvic pain in early . Pt is approximately 6 w GA by LMP. She was seen outpatient for similar symptoms and vaginal spotting. Pt states she continues to have spotting. She states her pelvic pain was more intense than she has ever felt today. She states the pain has resolved now. She denies any dysuria. Pt had a normal bowel movement this AM. She denies any nausea or vomiting. She does stat that she had noticed some vaginal discharge prior. Beta HCG levels have been trending upward. Review of Systems Review of Systems: All systems reviewed & are unremarkable except as noted in HPI and below PMFSH Past Medical History Medical History Spotting affecting Family History Family History Other Unknown family medical history Social History Social History Smoking status: Never smoker Substance use: never Gender identity (if verbalized by the patient): Female Spiritual care concerns: No Meds Home Medications and Allergies Home Medications Medication Instructions Recorded Confirmed Type No Home Medications 04/04/22 04/04/22 History Allergies Allergy/AdvReac Type Severity Reaction Status Date / Time No Known Allergies Allergy Verified 04/04/22 12:37 Vital Signs Vital Signs - 24 hr 04/04/22 12:38 Temperature 36.8 C Pulse Rate 71 Respiratory Rate 16 Blood Pressure 117/58 L Pulse Oximetry 99 Exam Const: General: cooperative, comfortable, no acute distress and alert Resp: Effort & Inspection: normal respiratory effort and able to speak in complete sentences Cardio: Rate: regular rate Rhythm: regular rhythm GI: Inspection: normal to inspection GI Palp: Yes abdominal tenderness (mild tenderness to deep palpation), Yes Soft to palpation, No Guarding due to palpation present (GI) and No Rebound tenderness present Results Labs CBC & Chem 7: 04/04/22 13:19 04/04/22 13:19 Labs: Short CBC 04/04/22 Range/Units 13:19 WBC 6.0 (4.5-10.0) K/mm3 Hgb 12.7 (12.0-15.0) g/dL Hct 38.0 (37.0-47.0) % Plt Count 345 (150-375) k/mm3 BMP 04/04/22 04/04/22 13:19 13:19 Sodium 136 L Cancelled Potassium 3.9 Cancelled Chloride 107 Cancelled Carbon Dioxide 22 Cancelled BUN 12 D Cancelled Creatinine 0.70 Cancelled Glucose 95 Cancelled Calcium 8.9 Cancelled Liver Function 04/04/22 04/04/22 Range/Units 13:19 13:19 Total Bilirubin 0.9 Cancelled (0.2-1.3) mg/dL AST 22 Cancelled (14-36) U/L ALT 21 Cancelled (6-35) U/L Alkaline Phosphatase 49 Cancelled (38-126) U/L Albumin 4.3 Cancelled (3.5-5.1) g/dL
[2022-04-04 16:52] VITALS: BP 120/63; PULSE 81; RESP 18; O2SAT 97
== END 2022-04-04 16:54 | disposition home or self-care (01) ==
PROVIDERS: Physician Assistant; Emergency Provider Emergency Medicine
DX: O36.80X0 Pregnancy with inconclusive fetal viability, not applicable or unspecified (principal); O99.891 Other specified diseases and conditions complicating pregnancy; N83.9 Noninflammatory disorder of ovary, fallopian tube and broad ligament, unspecified; Z3A.01 Less than 8 weeks gestation of pregnancy
CPT/HCPCS: 36415; 76817; 80053; 84702; 85025; 99284; A9270

== ENCOUNTER 2022-04-10 02:48 | Day surgery (SDC) | payer OTHER, SELFPAY ==
[2022-04-09 10:43] VITALS: BMI 32.9
--- NOTE | 2022-04-09 10:50 | PC.NURSE ---
Report to the Outpatient Waiting Room, entrance under the green pavilion located off [facility], at time 1030 on date 04/10/22. OR Time: 1230. - You and your visitor will be asked a series of questions to screen for COVID 19 for your protection. - Only one visitor is allowed at this time. - The patient visitor is requested to leave or wait in car when not with patient. - A mask is required within the hospital. Patients may have clear liquids (water, carbonated beverages, clear teas, apple juice) until 3 hours prior to surgery with a maximum of 20 ounces. - No food from midnight until time of surgery Take the following medications with a SIP of water the morning of surgery: N/A Medications to discontinue per physician: N/A Date to take last dose: N/A Please no make-up, nail kosovan, hairspray, perfume, deodorant, or body powder the day of surgery. No jewelry (including any body piercings) or valuables the day of surgery, leave them at home. Please take a shower or bath the night before, or the morning of, surgery with an antibacterial soap. Wear comfortable, loose fitting clothing. - Jewelry must be removed prior to entering the operating room. Rings and piercings that are not removed may be cut off. - The hospital will not accept responsibility for valuables. - Please leave all valuables, including medications, at home the day of surgery. If you are going home after surgery, a licensed non emergency services ambulance driver must drive you home. - NO public transportation without another adult. - We recommend that an adult stay with you for 24 hours following discharge. - We also recommend that you do not drive, make important decision, drink alcoholic beverages, or take any drugs that were not prescribed by your health care provider for at least 24 hours after your discharge time. Follow any additional instructions given to you from your surgeon. If you or anyone in your household have experienced Covid symptoms in the past week, please notify your surgeon or the nurse liaison at the phone number below for possible testing. Telephone instructions given to EDITH COLIN and asked if any additional questions and then verbalized understanding. Patient advised to call surgeon office or pre surgery nurse liaison [phone] if any additional questions.
--- NOTE | 2022-04-09 12:30 | PM.IMHP ---
H&P: HPI History of Present Illness Date/Time: 04/09/22 12:30 Chief Complaint: Abnormal Narrative: A 26-year-old female with irregularly rising HCGs and nothing seen in the uterus. She has spotting and bleeding. There is question of a right ectopic present. She was offered methotrexate versus laparoscopy and opts for the latter. Risks and benefits reviewed including but not exclusive of , aspiration pneumonia, bleeding, transfusion, perforation injury to bowel, bladder, ureters, or other internal organs with need for open laparotomy. She had all questions answered and asked to proceed PMFSH Past Medical History Medical History Spotting affecting Family History Family History Other Unknown family medical history Social History Social History Smoking status: Never smoker Alcohol intake: current Alcohol use details: SOCIAL Substance use: never Substance use type: does not use Living arrangements: with family Gender identity (if verbalized by the patient): Female Spiritual care concerns: No Meds Home Medications and Allergies Home Medications Medication Instructions Recorded Confirmed Type No Home Medications 04/04/22 04/09/22 History Allergies Allergy/AdvReac Type Severity Reaction Status Date / Time No Known Allergies Allergy Verified 04/09/22 10:42 Exam : External Female Exam: normal external appearance Speculum Exam - Cervix: normal appearance of the cervix Bimanual exam- vagina & uterus: soft Bimanual Exam- Adnexa, other: cul-de-sac tenderness Assessment and Plan Assessment and plan (1) of unknown anatomic location: Code(s): O36.80X0 - with inconclusive viability, not applicable or unspecified Status: Acute Plan Laparoscopy. Possible unilateral salpingostomy. Possible unilateral salpingectomy. Possible unilateral salpingo-oophorectomy
[2022-04-10] VITALS (7 sets, daily range): BP systolic 96–122; BP diastolic 41–78; PULSE 49–89; RESP 14–16; TEMP 36.4–36.7; O2SAT 99–100
--- NOTE | 2022-04-10 06:46 | WPDHPUPDATE1 ---
History and Physical Update Update Date/Time: 04/10/22 06:46 History and Physical has been reviewed, including an updated exam of the patient. There are NO changes in the patient's condition. Risks, benefits, and alternatives have been discussed and questions answered. Patient agrees to proceed with procedure.
--- NOTE | 2022-04-10 11:05 | P.PNAN_ITS ---
Anes - Initial Pre Proc Eval Procedure: Operation Date: 04/10/22 12:30 Proposed Procedures p Diagnostic Laparoscopy with Right Possible Salpingectomy, Possible Salpingostomy - Joesph Rogers MD Date/Time: 04/10/22 11:05 Surgeon: Joesph Rogers MD Pre Op Diagnosis: Ectopic Patient Data Age: 26 Gender: F Height: 1.57 m Weight: 81.65 kg Allergies Allergy/AdvReac Type Severity Reaction Status Date / Time No Known Allergies Allergy Verified 04/09/22 10:42 Home Medications Medication Instructions Recorded Confirmed Type hydrocodone 5 mg-acetaminophen 325 1 tablet PO Q4H PRN pain #30 tabs 04/10/22 Rx mg tablet Patient hx anesthesia problems: none Family hx anesthesia problems: none Results Review: All pre-operative results and documents have been reviewed as part of the pre- operative evaluation. [facility] Past Medical History Medical History (Updated 04/10/22 @ 11:05 by Joesph Vargas MD) Obesity Spotting affecting Surgical History Surgical History (Updated 04/10/22 @ 11:05 by Joesph Vargas MD) History of appendectomy Family History Family History Other Unknown family medical history Social History Social History Smoking status: Never smoker Alcohol intake: current Alcohol use details: SOCIAL Substance use: never Substance use type: does not use Living arrangements: with family Gender identity (if verbalized by the patient): Female Spiritual care concerns: No Anes - Eval Final PreProcedure Day of Procedure 04/10/22 11:05 Patient weight: obese Heart: regular rate and rhythm Lungs: clear to auscultation Airway: Mallampati scale class II Last oral intake: >/= 8 hours ASA classification: II Emergent: no Anesthetic plan: proceed Anesthesia type and monitoring: general ETT and standard monitoring Results Review: All pre-operative results and documents have been reviewed as part of the pre- operative evaluation. Informed Consent: The patient's anesthetic plan and its attendant risks and benefits were discussed with the patient/family/POA. Questions were solicited and answers provided to the satisfaction of the patient/family/POA.
[2022-04-10] MEDS: LACTATED RINGERS 1,000 ML 30 ML IV CONT ×2 (11:15→12:09)
[2022-04-10] MEDS: KETOROLAC 15 MG/ML VIAL (*BKC) IV PUSH (11:20)
[2022-04-10] MEDS: ACETAMINOPHEN 500 MG TABLET 1000 MG PO (11:20)
--- NOTE | 2022-04-10 12:03 | W.PM.PROC2 ---
Procedure Note - Detailed Date of Procedure 04/10/22 Pre-op Diagnosis Ectopic Post-op Diagnosis Same Procedure Performed Laparoscopic right salpingostomy with removal of ectopic /evacuation of hematoma peritoneum Surgeon Joesph Rogers MD Anesthesia General Indications This is a 26-year-old with of unknown origin who was admitted for laparoscopy secondary to suspected ectopic . Findings Right distal ectopic . Normal-appearing ovary and tube on the opposite side. But 100cc of clot and blood in cul-de-sac Description of Procedure Patient was prepped and draped in the normal sterile fashion placed in the dorsal lithotomy position. Under excellent general trach anesthesia weighted speculum was placed in posterior fornix vagina. Anterior lip of the cervix grasped with a single-tooth tenaculum. Hernandez's cannula was inserted to the cervix and attached to the single-tooth to be used later for uterine manipulation. The bladder emptied of clear urine and the weighted speculum was removed. Gloves were changed all An infraumbilical incision made the Veress needle passed in the abdomen. Abdomen filled with CO2 gas [id number]. The 5mm trocar advanced with the Optiview under direct visualization assuring no injury. The patient placed in Trendelenburg and a suprapubic incision made. The 5mm trocar advanced under direct visualization. On 100 or so cc of clot blood were noted in the pelvis and this was suction and irrigated until clear. A at the ectopic was noted at the distal portion of the right fallopian tube. This measured about 2cm across. A linear incision was made with monopolar cautery and the ectopic was peeled from the inside of the tube without difficulty. This was passed off as specimen. Then vigorous irrigation was undertaken until clear. No active bleeding was seen at the site of the incision. The remainder of the pelvis was vigorously irrigated till all clots and debris were clear. The tube again was visualized and noted be hemostatic. Photo documentation undertaken. The lower site removed. The gas removed from the abdomen. The upper site removed. The incisions closed with 4-0 Monocryl and glue after the trocars had been removed. Patient tolerated the procedure well. All sponge, needle, instrument counts were correct. There were no immediate complications Estimated Blood Loss 100 Drains No Packing No Pathology Yes Complications No immediate complications Condition Stable Disposition PACU
[2022-04-10] MEDS: fentaNYL CITRATE INJ (*CRX) 100 MCG/2 ML VIAL 25 MCG IV PUSH ×3 (12:17→12:53)
[2022-04-10] MEDS: oxyCODONE HCL (*CRX) 5 MG TAB IR PO (13:13)
== END 2022-04-10 13:50 | disposition home or self-care (01) ==
PROVIDERS: Visit Provider Obstetrics & Gynecology
PROC: (CPT 49320; principal; 2022-04-10 12:30)
DX: O00.101 Right tubal pregnancy without intrauterine pregnancy (principal)
CPT/HCPCS: 59150; 36415; 86850; 86900; 86901; 88305; A9270; J0330; J1100; J1885; J2250; J2405; J2704; J3010; J7120

== ENCOUNTER 2022-05-01 18:07 | Emergency (ER) | payer OTHER, SELFPAY ==
[2022-05-01] VITALS (14 sets, daily range): BP systolic 97–116; BP diastolic 54–68; PULSE 63–86; RESP 11–21; TEMP 36.4–37.1; O2SAT 98–100
--- NOTE | ~2022-05-01 | US_ITS ---
EXAMINATION: US OB <=14 wk fetus w TV DATE: 05/01/2022 19:16 INDICATION: Right pelvic pain. Right salpingectomy on 04/10/2022. TECHNIQUE: Real-time transabdominal and transvaginal pelvic ultrasound was performed. COMPARISON: Ultrasound 04/04/2022 FINDINGS: TRANSABDOMINAL ULTRASOUND: The uterus measures 9.7 x 4.7 x 3.9 cm. TRANSVAGINAL ULTRASOUND: There is no visible intrauterine gestational sac. The endometrial complex is 6 mm in thickness. In the right adnexa, there is a 4.0 x 3.9 x 3.7 cm mass of mixed echogenicity. Th ere is vascular flow in the right adnexal mass. The left ovary is not visualized. There is trace free fluid in the pelvis. IMPRESSION: 1. 4.0 x 3.9 x 3.7 cm mass in the right adnexa. Given the recent surgery, this finding may be ovary and hematoma. Reviewed, dictated and finalized at location A.
--- NOTE | 2022-05-01 18:35 | ED.ABDPAIN ---
HPI - Abdominal Pain General Chief Complaint: Abdominal Pain <RUPA Wesley Last Filed: 05/02/22 00:12> Stated Complaint: right side pelvic pain s/p ectopic <India Roberts PA-C - Last Filed: 05/02/22 00:12> Time Seen by Provider: 05/01/22 18:20 <India Roberts PA-C - Last Filed: 05/02/22 00:12> History of Present Illness HPI narrative: 26-year-old female with a history of recent right-sided ectopic treated with laparoscopic surgery followed by methotrexate (milagros rendon) here for evaluation of sharp, right-sided pelvic pain that came on suddenly about 3 hours ago. She took a Tylenol prior to arrival without relief of the pain. Additionally feels nauseated but has not vomited. Patient has had vaginal bleeding since her procedure, no more than usual. Denies any fevers, chills, dysuria, urgency or frequency. Contacted her OB who recommended her come to the ED. <RUPA Wesley Last Filed: 05/02/22 00:12> Related Data Allergies/Adverse Reactions: Allergies Allergy/AdvReac Type Severity Reaction Status Date / Time No Known Allergies Allergy Verified 05/01/22 18:14 <India Roberts PA-C - Last Filed: 05/02/22 00:12> Review of Systems Review of Systems: Gen: Denies fevers or chills Eyes: Denies eye pain or visual change ENT: Denies congestion Respiratory: Denies shortness of breath or cough CV: Denies chest pain or palpitations GI: Reports right-sided abdominal pain and nausea. Denies emesis or diarrhea : denies burning, urgency, frequency or hematuria Musculoskeletal: Denies back pain or muscle pain Neuro: Denies numbness, tingling, weakness or focal weakness Skin: Denies rash Except as documented, all other systems reviewed and negative <RUPA Wesley Last Filed: 05/02/22 00:12> [facility] Past Medical History Medical History: Medical History (Updated 05/02/22 @ 00:00 by Background Daemon) Obesity Spotting affecting <RUPA Wesley Last Filed: 05/02/22 00:12> Surgical History Surgical History: Surgical History (Updated 04/10/22 @ 11:05 by Joesph Vargas MD) History of appendectomy <RUPA Wesley Filed: 05/02/22 00:12> Family History Family History: Family History Other Unknown family medical history <RUPA Wesley Filed: 05/02/22 00:12> Social History Social History: Social History Smoking status: Never smoker Alcohol intake: current Alcohol use details: SOCIAL Substance use: never Substance use type: does not use Gender identity (if verbalized by the patient): Female Spiritual care concerns: No <RUPA Wesley Filed: 05/02/22 00:12> Exam Narrative: APPEARANCE: Well appearing, no pain in distress, well-nourished. Head: Normocephalic and atraumatic. EYES: PERRLA/EOMI, conjunctivae clear NOSE: No nasal drainage EARS: External ear normal in appearance THROAT: Oropharynx is clear. Mucous membranes are moist. NECK: Supple. No adenopathy, no masses. RESPIRATORY: Airway patent, respirations nonlabored. Clear to auscultation bilaterally, no rales, rhonchi, wheezing. CARDIOVASCULAR: Regular rate and rhythm without murmurs, rubs, or gallops. ABDOMINAL: Tender to palpation in the right lower abdomen and suprapubic region. Normoactive bowel sounds. Soft, nontender, nondistended. No rebound tenderness or guarding. MUSCULOSKELETAL: Extremities are warm and well-perfused. Moves all extremities well. No edema. : exam performed with checker loader cat. scant amount of blood noted in vaginal vault, cervical os is closed NEURO: Normal speech. No focal neurologic deficits. SKIN: Skin is warm and dry. No rashes. PSYCHIATRIC: Normal affect/mood. <RUPA Wesley
[2022-05-01 18:55] LABS: Basophils Percent Auto 0.5 % (0.2-1.2); Eosinophils Absolute Auto 0.1 K/mm3 (0-0.3); Hematocrit 37.4 % (37.0-47.0); Hemoglobin 12.8 g/dL (12.0-15.0); Immature Granulocyte Absolute 0.04 K/mm3 (0.00-0.031); Immature Granulocyte Percent A 0.5 % (0-0.5); Lymphocytes Absolute Auto 2.48 K/mm3 (0.9-3.2); Lymphocytes Percent Auto 31.8 % (18.3-44.2); Mean Corpuscular HGB Conc 34.2 g/dl (32-36); Mean Corpuscular Hemoglobin 31.1 pg (26-34); Mean Corpuscular Volume 90.8 fl (80-100); Mean Platelet Volume 8.2 fl (7.4-10.4); Monocytes Absolute Auto 0.5 K/mm3 (0.1-0.6); Monocytes Percent Auto 5.9 % (2.6-8.5); Neutrophils Absolute Auto 4.7 K/mm3 (1.3-6.7); Neutrophils Percent Auto 60.3 % (45.5-73.1); Platelet Count Result 386 k/mm3 (150-375); Red Blood Count 4.12 M/mm3 (4.2-5.4); Red Cell Distribution Width 11.9 % (11.5-14.5); White Blood Count 7.8 K/mm3 (4.5-10.0)
[2022-05-01 19:05] LABS: Alanine Aminotransferase 28 U/L (6-35); Albumin Level 4.9 g/dL (3.5-5.1); Alkaline Phosphatase 65 U/L (38-126); Anion Gap 12 mmol/L (8-16); Aspartate Amino Transferase 27 U/L (14-36); Bilirubin,Total 0.6 mg/dL (0.2-1.3); Blood Urea Nitrogen 24 mg/dL (7-17); Calcium 9.1 mg/dL (8.4-10.2); Carbon Dioxide 26 mmol/L (22-30); Chloride 100 mmol/L (98-107); Estimated CRCL calculation 82 ml/min; Estimated Glomerular Filt Rate > 60; Glucose 98 mg/dL (65-110); Potassium 3.8 mmol/L (3.4-5.0); Sodium 138 mmol/L (137-145)
--- NOTE | 2022-05-01 19:21 | PC.NURSE ---
Report received from GEOVANNA Santos. Assumed care of patient at this time.
[2022-05-01] MEDS: ONDANSETRON INJ 4 MG/2 ML VIAL IV PUSH (19:47)
[2022-05-01] MEDS: KETOROLAC 15 MG/ML VIAL (*BKC) IV PUSH (20:10)
[2022-05-01] MEDS: MORPHINE SULFATE (*CRX) 4 MG/ML INJ IV PUSH (20:36)
--- NOTE | 2022-05-01 21:18 | PC.NURSE ---
Patient states she does feel better and the pain is tolerable but voices concerns about going home and pain control. ERP notified.
[2022-05-01 22:09] LABS: Appearance Urine Clear (Clear); Bilirubin Urine Negative (Negative); Blood Urine 2+ (Negative); Color Urine Yellow (Yellow); Glucose Urine UA Negative (Negative); Ketones Urine 1+ mg/dL (Negative); Leukocyte Esterase Ur Negative LEU/UL (Negative); Nitrate Urine Negative (Negative); Protein Urine Trace mg/dL (Negative); Specific Grav Ur 1.025 (1.001-1.035); Urobilinogen Urine 0.2 mg/dL (<2.0)
[2022-05-01 22:12] LABS: Bacteria Urine Trace /hpf; Mucus Urine Rare /lpf; Squamous Epithelial Cell Urine Rare /hpf (Few); WBC Urine 0-3 /hpf
[2022-05-01 22:13] LABS: Add Urine Microscopic? YES
== END 2022-05-01 22:40 | disposition home or self-care (01) ==
PROVIDERS: Physician Assistant; Emergency Provider Emergency Medicine
DX: G89.18 Other acute postprocedural pain (principal); R10.2 Pelvic and perineal pain
CPT/HCPCS: 36415; 76801; 76817; 80053; 81001; 84702; 85025; 96374; 96375; 99284; J1885; J2270; J2405

== ENCOUNTER 2022-10-29 11:19 | Emergency (ER) | payer OTHER, SELFPAY ==
--- NOTE | ~2022-10-29 | XR_ITS ---
EXAMINATION: XR shoulder RT min 2V DATE: 10/29/2022 12:28 INDICATION: Right shoulder pain. TECHNIQUE: 4 views of right shoulder were obtained. COMPARISON: None. FINDINGS: Bone alignment is normal. No fracture. Joint spaces are normal. IMPRESSION: 1. Normal right shoulder. Reviewed, dictated and finalized at location A. [employer] IMPRESSION: 1. Normal right shoulder.
[2022-10-29 11:52] VITALS: BP 103/60; PULSE 70; RESP 18; TEMP 36.8; O2SAT 99
--- NOTE | 2022-10-29 13:47 | ED.UPPEXIN ---
HPI - Extremity Injury (Upper) General Chief Complaint: Extremity Injury, Upper Stated Complaint: right shoulder pain Time Seen by Provider: 10/29/22 13:06 History of Present Illness HPI narrative: Patient is a 27-year-old female presenting with right shoulder pain. Patient states that she was doing push-ups yesterday when she heard a popping and crunching sound in her right shoulder. States that since then she has had some soreness in that shoulder. States that the pain is worse with movement. Because of the sound she heard while working out, she became concerned she broke something. She denies decreased range of movement. No numbness or weakness. Denies further injuries or complaints. Related Data Allergies Allergy/AdvReac Type Severity Reaction Status Date / Time No Known Allergies Allergy Verified 10/29/22 11:19 Review of Systems Review of Systems: All systems reviewed & are unremarkable except as noted in HPI and below PMFSH Past Medical History Medical History Obesity Spotting affecting Surgical History Surgical History History of appendectomy Family History Family History Other Unknown family medical history Social History Social History Smoking status: Never smoker Alcohol intake: current Alcohol use details: SOCIAL Substance use: never Substance use type: does not use Living arrangements: with family Gender identity (if verbalized by the patient): Female Spiritual care concerns: No Exam Narrative: GENERAL: Well-appearing, well-nourished, and in no acute distress. HEAD: Normocephalic, atraumatic. EYES: PERRLA and EOMI. ENT: Nares clear, no rhinorrhea or epistaxis. Mucous membranes moist. NECK: Supple. CHEST: No respiratory distress. HEART: Regular rate and rhythm ABDOMEN: Soft, nontender, nondistended EXTREMITIES: Normal range of motion. No edema. Mild tenderness along anterior aspect of right clavicle and right glenohumeral joint, ROM of the shoulder is intact, ROM of distal joints intact, radial pulse 2+, no sensory deficits SKIN: Warm, dry, no rash. NEURO: No focal deficits. Alert and oriented x3. PSYCH: Normal mood and affect. Course Vital Signs Vital signs: Vital Signs Temperature 98.3 F 10/29/22 11:52 Pulse Rate 70 10/29/22 11:52 Respiratory Rate 18 10/29/22 11:52 Blood Pressure 103/60 10/29/22 11:52 Pulse Oximetry 99 10/29/22 11:52 Oxygen Delivery Room Air 10/29/22 11:52 Temperature 98.3 F 10/29/22 11:52 Pulse Rate 78 10/29/22 14:18 Respiratory Rate 18 10/29/22 14:18 Blood Pressure 106/67 10/29/22 14:18 Pulse Oximetry 99 10/29/22 14:18 Oxygen Delivery Room Air 10/29/22 11:52 MDM - Extremity Injury (Upper) MDM Narrative Medical decision making narrative: Patient is a 27-year-old female presenting with right shoulder pain after hearing a pop while doing push-ups yesterday. Vitals within normal limits. Exam is unremarkable. X-ray with no acute abnormalities. Advised appropriate supportive care and rest. Recommended PCP follow-up. Appropriate return precautions given. Patient discharged in stable condition. Differential Diagnosis Differential diagnosis: Likely dislocation of shoulder, fracture of humerus, fracture of clavicle and other (muscle strain, musculoskeletal pain) Critical Care Time Critical Care Time Critical Care Time: No Discharge Plan Discharge Clinical Impression: Right shoulder pain Patient Disposition: Home, Self-Care Condition: Stable Instructions: Antibiotic Form, Shoulder Pain (ED) Additional Instructions: Please rest the affected shoulder and apply ice for the next day. You may use Tylenol and ibuprofen for pain control. Please follow-up nelson
[2022-10-29 14:18] VITALS: BP 106/67; PULSE 78; RESP 18; O2SAT 99
== END 2022-10-29 14:21 | disposition home or self-care (01) ==
PROVIDERS: Emergency Provider Emergency Medicine; PCP Family Medicine
DX: S49.91XA Unspecified injury of right shoulder and upper arm, initial encounter (principal); E66.9 Obesity, unspecified; Z68.32 Body mass index [BMI] 32.0-32.9, adult; X50.9XXA Other and unspecified overexertion or strenuous movements or postures, initial encounter; Y93.B2 Activity, push-ups, pull-ups, sit-ups
CPT/HCPCS: 73030; 99283

== ENCOUNTER 2023-02-26 16:23 | Emergency (ER) | payer OTHER, SELFPAY ==
--- NOTE | ~2023-02-26 | US_ITS ---
EXAMINATION: US OB <=14 wk fetus w TV INDICATION: ELEVATED BHCG HX OF ECTOPIC PREG TECHNIQUE: Sonography of the pelvis was performed by transabdominal and transvaginal techniques. COMPARISON: None. RESULT: Uterus: Orientation: Anteverted. 9.2 x 5.0 x 5.3 cm. Myometrium: homogeneous echogenicity. Intrauter ine gestational sac: Not seen. Right ovary: 5.0 x 2.4 x 2.4 cm. Normal sonographic appearance with physiologic follicles. Vascul ar flow is present. No adnexal mass. Left ovary: 4.0 x 2.2 x 4.8 cm. Normal sonographic appearance with physiologic follicles. Vascula r flow is present. No adnexal mass. Pelvis free fluid: None. IMPRESSION: No gestational sac detected, representing a of unknown location. No sonographic evidence of ectopic p regnancy. Follow-up serial beta-hCG and pelvic ultrasound as clinically warranted. Reviewed, dictated and finalized at location K. IMPRESSION: No gestational sac detected, representing a of unknown location. No sonographic evidence of ectopic . Follow-up serial beta-hCG and pelvic ultrasound as clinically warranted.
[2023-02-26 16:46] VITALS: BP 102/80; PULSE 74; RESP 16; TEMP 36.8; O2SAT 96
[2023-02-26 17:21] LABS: Basophils Absolute Auto 0.1 K/mm3 (0.0-0.1); Basophils Percent Auto 0.7 % (0.2-1.2); Eosinophils Absolute Auto 0.2 K/mm3 (0-0.3); Eosinophils Percent Auto 1.8 % (0-4.4); Hematocrit 38.3 % (37.0-47.0); Immature Granulocyte Absolute 0.03 K/mm3 (0.00-0.031); Immature Granulocyte Percent A 0.4 % (0-0.5); Lymphocytes Absolute Auto 2.29 K/mm3 (0.9-3.2); Lymphocytes Percent Auto 28.2 % (18.3-44.2); Mean Corpuscular HGB Conc 33.9 g/dl (32-36); Mean Corpuscular Hemoglobin 31.6 pg (26-34); Mean Platelet Volume 8.4 fl (7.4-10.4); Monocytes Absolute Auto 0.7 K/mm3 (0.1-0.6); Monocytes Percent Auto 8.1 % (2.6-8.5); Neutrophils Absolute Auto 4.9 K/mm3 (1.3-6.7); Neutrophils Percent Auto 60.8 % (45.5-73.1); Platelet Count Result 369 k/mm3 (150-375); Red Blood Count 4.12 M/mm3 (4.2-5.4); Red Cell Distribution Width 11.9 % (11.5-14.5); White Blood Count 8.1 K/mm3 (4.5-10.0)
[2023-02-26 17:32] LABS: Anion Gap 8 mmol/L (8-16); Blood Urea Nitrogen 14 mg/dL (7-17); Calcium 8.5 mg/dL (8.4-10.2); Carbon Dioxide 24 mmol/L (22-30); Chloride 106 mmol/L (98-107); Estimated CRCL calculation 90 ml/min; Estimated Glomerular Filt Rate > 60; Glucose 85 mg/dL (65-110); Potassium 4.1 mmol/L (3.4-5.0); Sodium 138 mmol/L (137-145)
--- NOTE | 2023-02-26 18:05 | ED.ABDPAIN ---
HPI - Abdominal Pain General Chief Complaint: Abdominal Pain <RUPA Wilcox Last Filed: 02/27/23 01:20> Stated Complaint: 6 weeks abdominal pain <RUPA Wilcox Last Filed: 02/27/23 01:20> Time Seen by Provider: 02/26/23 17:17 <Сергей Arce PA-C - Last Filed: 02/27/23 01:20> Source: patient <RUPA Wilcox Last Filed: 02/27/23 01:20> Mode of arrival: ambulatory <RUPA Wilcox Last Filed: 02/27/23 01:20> Limitations: no limitations <RUPA Wilcox Last Filed: 02/27/23 01:20> History of Present Illness HPI narrative: This is a 27-year-old female who is approximately 6 weeks and PMH of ectopic who presents to the ED with chief complaint of left lower abdominal pain and vaginal spotting. States that she has had intermittent cramps in the left lower quadrant however they have become much more severe and constant today. States she has had intermittent spotting for the past few weeks. Initially thought it was her regular period. States that today she is feeling lightheaded as well. Denies any nausea or vomiting. Denies fevers, chills, chest pain, shortness of breath, cough. Denies any concern for STDs. A1 She follows with Dr. Richard Rogers. <Сергей Arce PA-C - Last Filed: 02/27/23 01:20> Related Data Allergies/Adverse Reactions: Allergies Allergy/AdvReac Type Severity Reaction Status Date / Time No Known Allergies Allergy Verified 02/26/23 17:20 <RUPA Wilcox Last Filed: 02/27/23 01:20> Review of Systems Review of Systems: CONSTITUTIONAL: Denies fever, chills, or sweats. EYES: Denies visual changes, redness, or discharge. ENT: Denies rhinorrhea, congestion, sore throat, or otalgia. CARDIOVASCULAR: Denies chest pain, palpitations, or edema. RESPIRATORY: Denies cough or dyspnea. GASTROINTESTINAL: Denies abdominal pain, nausea, vomiting, or diarrhea. GENITOURINARY: Denies dysuria or hematuria. SKIN: Denies rash or itching. MUSCULOSKELETAL: Denies back pain, joint pain, or myalgia. NEUROLOGIC: Denies headache, numbness, dizziness, or weakness. PSYCHIATRIC: Denies anxiety or depression. <Сергей Arce PA-C - Last Filed: 02/27/23 01:20> PMFSH Past Medical History Medical History: Medical History Obesity Spotting affecting <Сергей Arce PA-C - Last Filed: 02/27/23 01:20> Surgical History Surgical History: Surgical History History of appendectomy <RUPA Wilcox Last Filed: 02/27/23 01:20> Family History Family History: Family History Other Unknown family medical history <Сергей Arce PA-C - Last Filed: 02/27/23 01:20> Social History Social History: Social History Smoking status: Never smoker Alcohol intake: current Alcohol use details: SOCIAL Substance use: never Substance use type: does not use Living arrangements: with family Gender identity (if verbalized by the patient): Female Spiritual care concerns: No <RUPA Wilcox Last Filed: 02/27/23 01:20> Exam Narrative: GENERAL: Well-appearing, well-nourished, and in no acute distress. HEAD: Normocephalic, atraumatic. EYES: PERRLA and EOMI. ENT: Nares clear, no rhinorrhea or epistaxis. Mucous membranes moist. Oropharynx without tonsillar hypertrophy exudate or other lesions. NECK: Supple. No adenopathy or masses. CHEST: No respiratory distress. Clear to auscultation. No wheezes rales or rhonchi HEART: Regular rate and rhythm. No murmur heard. Normal peripheral pulses. ABDOMEN: Left lower quadrant and suprapubic tenderness present. No flank tenderness. Soft, nondistended, normal active bowel sounds. MSK: Normal range of motion. No edema. SKIN
[2023-02-26 18:21] VITALS: BP 115/59; PULSE 73; RESP 16; O2SAT 99
--- NOTE | 2023-02-26 19:15 | PC.NURSE ---
This RN assumed care of patient.
== END 2023-02-26 20:00 | disposition home or self-care (01) ==
PROVIDERS: Emergency Medicine; Emergency Provider Physician Assistant; PCP Family Medicine
DX: O26.891 Other specified pregnancy related conditions, first trimester (principal); R10.9 Unspecified abdominal pain; O99.211 Obesity complicating pregnancy, first trimester; E66.9 Obesity, unspecified; Z3A.01 Less than 8 weeks gestation of pregnancy
CPT/HCPCS: 36415; 76801; 76817; 80048; 84702; 85025; 85461; 86850; 86900; 86901; 87070; 96374; 99284; J0131

== ENCOUNTER 2023-03-01 09:14 | Outpatient (CLI) | payer OTHER, SELFPAY | END 2023-03-01 09:15 | disposition home or self-care (01) | LOC: ANHLAB 09:16 | PROVIDERS: PCP Family Medicine; Visit Provider Obstetrics & Gynecology | DX: O26.90 Pregnancy related conditions, unspecified, unspecified trimester (principal) | CPT/HCPCS: 36415; 84702 ==

== ENCOUNTER 2023-03-02 08:13 | Emergency (ER) | payer OTHER, SELFPAY ==
[2023-03-02] VITALS (9 sets, daily range): BP systolic 81–112; BP diastolic 43–72; PULSE 53–81; RESP 15–18; TEMP 36.8; O2SAT 97–100
--- NOTE | ~2023-03-02 | US_ITS ---
EXAMINATION: US OB <=14 wk fetus w TV DATE: 03/02/2023 10:06 INDICATION: Pelvic pain. TECHNIQUE: Real-time transabdominal and transvaginal obstetric ultrasound. FINDINGS: Comparison to 02/26/2023 The uterus measures 10/5.7 x 6.9 cm. No intrauterine gestational sac or pole identified. Endome trium measures 7 mm. There are follicular changes in the ovaries which are otherwise unremarkable. Sm all amount of free fluid in the pelvis. IMPRESSION: 1. Unremarkable pelvic ultrasound. No evidence for intrauterine . Considerations include arabella y early intrauterine , ectopic and failed . Recommend follow-up with seri al quantitative beta-hCG levels and ultrasound as clinically indicated. Reviewed, dictated and finalized at location L. IMPRESSION: 1. Unremarkable pelvic ultrasound. No evidence for intrauterine . Cons iderations include very early intrauterine , ectopic and marissa led . Recommend follow-up with serial quantitative beta-hCG levels and ultrasound as clinically indicated.
--- NOTE | 2023-03-02 08:16 | ECG_ITS ---
Measurements Intervals [place] Rate: 52 P: 30 CO: 163 QRS: 30 QRSD: 94 T: 17 QT: 426 QTc: 398 Interpretive Statements SINUS BRADYCARDIA WITH SINUS ARRHYTHMIA NO PREVIOUS ECG AVAILABLE FOR COMPARISON Electronically Signed On 03-02-2023 16:16:46 CDT by Maria Antonia Guzman M.D.
[2023-03-02 08:41] LABS: Basophils Absolute Auto 0.1 K/mm3 (0.0-0.1); Basophils Percent Auto 0.8 % (0.2-1.2); Eosinophils Absolute Auto 0.2 K/mm3 (0-0.3); Eosinophils Percent Auto 3.3 % (0-4.4); Hematocrit 39.9 % (37.0-47.0); Hemoglobin 13.6 g/dL (12.0-15.0); Immature Granulocyte Absolute 0.02 K/mm3 (0.00-0.031); Immature Granulocyte Percent A 0.3 % (0-0.5); Lymphocytes Absolute Auto 2.33 K/mm3 (0.9-3.2); Lymphocytes Percent Auto 32.2 % (18.3-44.2); Mean Corpuscular HGB Conc 34.1 g/dl (32-36); Mean Corpuscular Hemoglobin 31.4 pg (26-34); Mean Corpuscular Volume 92.1 fl (80-100); Mean Platelet Volume 8.4 fl (7.4-10.4); Monocytes Absolute Auto 0.7 K/mm3 (0.1-0.6); Monocytes Percent Auto 9.3 % (2.6-8.5); Neutrophils Absolute Auto 3.9 K/mm3 (1.3-6.7); Neutrophils Percent Auto 54.1 % (45.5-73.1); Platelet Count Result 380 k/mm3 (150-375); Red Blood Count 4.33 M/mm3 (4.2-5.4); Red Cell Distribution Width 11.9 % (11.5-14.5); White Blood Count 7.2 K/mm3 (4.5-10.0)
[2023-03-02] MEDS: SODIUM CHLORIDE 0.9% IV 1,000 ML 999 ML IV CONT ×2 (08:49→11:09)
[2023-03-02 08:54] LABS: Alanine Aminotransferase 30 U/L (6-35); Albumin Level 4.3 g/dL (3.5-5.1); Alkaline Phosphatase 47 U/L (38-126); Anion Gap 9 mmol/L (8-16); Aspartate Amino Transferase 24 U/L (14-36); Bilirubin,Total 0.5 mg/dL (0.2-1.3); Blood Urea Nitrogen 16 mg/dL (7-17); Calcium 8.8 mg/dL (8.4-10.2); Carbon Dioxide 23 mmol/L (22-30); Chloride 106 mmol/L (98-107); Estimated CRCL calculation 83 ml/min; Estimated Glomerular Filt Rate > 60; Glucose 131 mg/dL (65-110); Potassium 3.9 mmol/L (3.4-5.0); Sodium 138 mmol/L (137-145)
[2023-03-02 09:03] LABS: INR 0.9; Prothrombin Time 12.5 Seconds (11.1-14.7)
[2023-03-02 09:04] LABS: Partial Thromboplastin Time 24.7 SECONDS (22.3-36.8)
--- NOTE | 2023-03-02 10:52 | ED.SYNCOPE ---
HPI - Syncope General Chief Complaint: Syncope Stated Complaint: abd pain Time Seen by Provider: 03/02/23 08:35 History of Present Illness HPI narrative: Pt had brief syncopal episode this morning. Pt got lightheaded and dizzy and passed out. witnessed by . no injury noted. Pt has positive tests but so far no visible IUP. Pt had sono in ER and was to follow up with Dr Correia for repeat sono today. Pt has some pelvic pain but no bleeding today. Related Data Home Medications Medication Instructions Recorded Confirmed bupropion HCl 150 mg 24 hr tablet, 150 mg PO DAILY 03/02/23 03/02/23 extended release Allergies Allergy/AdvReac Type Severity Reaction Status Date / Time No Known Allergies Allergy Verified 03/02/23 14:44 Review of Systems Review of Systems: All systems reviewed & are unremarkable except as noted in HPI and below PMFSH Past Medical History Medical History Obesity Spotting affecting Surgical History Surgical History History of appendectomy Family History Family History Other Unknown family medical history Social History Social History Smoking status: Never smoker Alcohol intake: never Alcohol use details: SOCIAL Substance use: never Substance use type: does not use Living arrangements: with family Additional living arrangements comments: CHILDREN Gender identity (if verbalized by the patient): Female Spiritual care concerns: No Exam Const: General: healthy appearing Nutritional Appearance: well nourished Orientation/consciousness: patient oriented x3 Limitations: no limitations Eyes: Conjunctivae: conjunctivae normal Neck: Neck: normal visual inspection Chest: Chest palpation & inspection: normal inspection of the chest Resp: Effort & Inspection: normal respiratory effort Auscultation: clear to auscultation bilaterally Cardio: Rate: regular rate Rhythm: regular rhythm GI: Other: tender to palpation in pelvis, no mass : General: Yes bladder normal to palpation Skin: General skin exam: normal color Neuro: General: patient oriented x3, moves all extremities and no meningeal signs Extrem: General: normal to inspection and no clubbing, cyanosis or edema Psych: Mental Status: mental status grossly normal Affect: normal affect Attitude: cooperative Course Vital Signs Vital signs: Vital Signs Temperature 98.2 F 03/02/23 08:19 Pulse Rate 69 03/02/23 08:19 Respiratory Rate 18 03/02/23 08:19 Blood Pressure 112/72 03/02/23 08:19 Pulse Oximetry 100 03/02/23 08:19 Oxygen Delivery Room Air 03/02/23 08:19 Temperature 98.2 F 03/02/23 08:19 Pulse Rate 63 03/02/23 12:28 Respiratory Rate 15 03/02/23 12:28 Blood Pressure 97/68 L 03/02/23 12:28 Pulse Oximetry 100 03/02/23 12:28 Oxygen Delivery Room Air 03/02/23 08:19 MDM - Syncope MDM Narrative Medical decision making narrative: discussed with Dr Richard Rogers, said can see in his office today. Pt not bleeding and pain is minimal, minimal free fluid on sono no gestational sac or obvious ectopic but presumed ectopic. will see in office and start on methotrexate. Pt feels much better after fluids. Lab Data 03/02/23 08:33 03/02/23 08:33 Labs: Lab Results 03/02/23 Range/Units 08:33 WBC 7.2 (4.5-10.0) K/mm3 RBC 4.33 (4.2-5.4) M/mm3 Hgb 13.6 (12.0-15.0) g/dL Hct 39.9 (37.0-47.0) % MCV 92.1 (80-100) fl MCH 31.4 (26-34) pg MCHC 34.1 (32-36) g/dl RDW 11.9 (11.5-14.5) % Plt Count 380 H (150-375) k/mm3 MPV 8.4 (7.4-10.4) fl Immature Gran % (Auto) 0.3 (0-0.5) % Neut % (Auto) 54.1 (45.5-73.1) % Lymph % (Auto) 32.2 (18.3-4
== END 2023-03-02 12:30 | disposition home or self-care (01) ==
PROVIDERS: Emergency Provider Emergency Medicine; PCP Family Medicine
DX: O26.891 Other specified pregnancy related conditions, first trimester (principal); R55 Syncope and collapse; O99.211 Obesity complicating pregnancy, first trimester; E66.9 Obesity, unspecified; O99.891 Other specified diseases and conditions complicating pregnancy; R00.1 Bradycardia, unspecified; Z3A.01 Less than 8 weeks gestation of pregnancy
CPT/HCPCS: 36415; 76801; 76817; 80053; 84702; 85025; 85610; 85730; 86850; 86900; 86901; 93005; 96360; 96361; 99284; J7030

== ENCOUNTER 2023-03-04 00:10 | Day surgery (SDC) | payer OTHER, SELFPAY ==
[2023-03-02 14:45] VITALS: BMI 32.9
--- NOTE | 2023-03-02 14:50 | PC.NURSE ---
Report to the Outpatient Waiting Room, entrance under the green pavilion located off [facility], at time 1000 on date 03/04/23. Planned Procedure Time: 1200. Time changes happen often and if your time is changed the preop area will call you the afternoon before. - You and your visitor will be asked to self-screen and do not enter if you have any COVID symptoms. - A mask is optional within the hospital at this time. Patients may have clear liquids (water, carbonated beverages, clear teas, apple juice) until 3 hours prior to surgery with a maximum of 20 ounces. - No food from midnight until time of surgery Take the following medications with a SIP of water the morning of surgery: WELLBUTRIN DO NOT STOP ANY OF YOUR OTHER PRESCRIPTION MEDICATIONS PRIOR TO SURGERY ?EXCEPT THE FOLLOWING Medications to discontinue per physician: N/A Date to take last dose: N/A Please no make-up, nail cymro, hairspray, perfume, deodorant, or body powder the day of surgery. No jewelry (including any body piercings) or valuables the day of surgery, leave them at home. Please take a shower or bath the night before, or the morning of, surgery with an antibacterial soap. Wear comfortable, loose fitting clothing. - Jewelry must be removed prior to entering the operating room. Rings and piercings that are not removed may be cut off. - The hospital will not accept responsibility for valuables. - Please leave all valuables, including medications, at home the day of surgery. If you are going home after surgery, a licensed local hazmat driver must drive you home. - NO public transportation without another adult if you receive anesthesia. - We recommend that an adult stay with you for 24 hours following discharge. - We also recommend that you do not drive, make important decision, drink alcoholic beverages, or take any drugs that were not prescribed by your health care provider for at least 24 hours after your discharge time. Follow any additional instructions given to you from your surgeon. If you or anyone in your household have experienced Covid symptoms in the past week, please notify your surgeon or the nurse liaison at the phone number below for possible testing. Telephone instructions given to EDITH COLIN and asked if any additional questions and then verbalized understanding. Patient advised to call surgeon office or pre surgery nurse liaison [phone] if any additional questions.
--- NOTE | 2023-03-03 16:27 | P.HP_ITS ---
H&P: HPI History of Present Illness Date/Time: 03/03/23 16:27 Chief Complaint: Ectopic and desires permanent sterilization Narrative: A 27-year-old female with a history of ectopic as abnormally rising HCG levels. Ectopic was not seen on ultrasound however in light of her abnormally rising HCGs with a history of ectopic she is admitted for laparoscopic removal. She desires permanent irreversible sterilization. She had a previous right salpingostomy. She understands the procedure to be permanently irreversible. She had all questions answered and asked to proceed PMFSH Past Medical History Medical History Obesity Spotting affecting Surgical History Surgical History History of appendectomy Family History Family History Other Unknown family medical history Social History Social History Smoking status: Never smoker Alcohol intake: never Alcohol use details: SOCIAL Substance use: never Substance use type: does not use Living arrangements: with family Additional living arrangements comments: CHILDREN Gender identity (if verbalized by the patient): Female Spiritual care concerns: No Meds Home Medications and Allergies Home Medications Medication Instructions Recorded Confirmed Type bupropion HCl 150 mg 24 hr tablet, 150 mg PO DAILY 03/02/23 03/02/23 History extended release Allergies Allergy/AdvReac Type Severity Reaction Status Date / Time No Known Allergies Allergy Verified 03/02/23 14:44 Exam Const: General: cooperative, healthy appearing, comfortable and average body h abitus Nutritional Appearance: average body habitus and well nourished Orientation/consciousness: oriented to person, oriented to place and oriented to time HENMT: Head: normal to inspection Resp: Effort & Inspection: normal respiratory effort Cardio: Rate: regular rate Rhythm: regular rhythm Heart sounds: S1 normal heart sound present and S2 normal heart sound present GI: Inspection: normal to inspection : External Female Exam: normal external appearance Speculum Exam - Vagina: normal appearance of the vagina Speculum Exam - Cervix: normal appearance of the cervix Bimanual exam- vagina & uterus: non-tender Bimanual Exam- Adnexa, other: tender bilaterally Assessment and Plan Assessment and plan (1) of unknown anatomic location: Code(s): O36.80X0 - with inconclusive viability, not applicable or unspecified Status: Acute (2) Sterilization: Code(s): Z30.2 - Encounter for sterilization Status: Acute Plan Proceed with laparoscopic bilateral salpingectomies
[2023-03-04] VITALS (8 sets, daily range): BP systolic 91–107; BP diastolic 48–65; PULSE 64–88; RESP 14–16; TEMP 36.4–36.8; O2SAT 96–100
--- NOTE | 2023-03-04 07:52 | WPDHPUPDATE1 ---
History and Physical Update Update Date/Time: 03/04/23 07:52 History and Physical has been reviewed, including an updated exam of the patient. There are NO changes in the patient's condition. Risks, benefits, and alternatives have been discussed and questions answered. Patient agrees to proceed with procedure.
[2023-03-04] MEDS: ACETAMINOPHEN 500 MG TABLET 1000 MG PO (10:43)
[2023-03-04] MEDS: LACTATED RINGERS 1,000 ML 30 ML IV CONT ×2 (10:52→12:54)
--- NOTE | 2023-03-04 10:54 | WPDANESEPPF ---
Anes - Initial Pre Proc Eval Procedure: Operation Date: 03/04/23 12:00 Proposed Procedures p Laparoscopic Treatment of Ectopic with Bilateral Salpingectomy - Joesph Rogers MD Date/Time: 03/04/23 10:54 Surgeon: Joesph Rogers MD Pre Op Diagnosis: etopic , desires sterilization Patient Data Age: 27 Gender: F Height: 1.57 m Weight: 81.65 kg Allergies Allergy/AdvReac Type Severity Reaction Status Date / Time No Known Allergies Allergy Verified 03/04/23 10:25 Home Medications Medication Instructions Recorded Confirmed Type bupropion HCl 150 mg 24 hr tablet, 150 mg PO DAILY 03/02/23 03/02/23 History extended release hydrocodone 5 mg-acetaminophen 325 1 tablet PO Q4H PRN pain #20 tabs 03/04/23 Rx mg tablet Patient hx anesthesia problems: none Family hx anesthesia problems: none Results Review: All pre-operative results and documents have been reviewed as part of the pre-operative evaluation. [facility] Past Medical History Medical History Obesity Spotting affecting Surgical History Surgical History History of appendectomy Family History Family History Other Unknown family medical history Social History Social History Smoking status: Never smoker Alcohol intake: never Alcohol use details: SOCIAL Substance use: never Substance use type: does not use Living arrangements: with family Additional living arrangements comments: CHILDREN Gender identity (if verbalized by the patient): Female Spiritual care concerns: No Anes - Eval Final PreProcedure Day of Procedure 03/04/23 10:54 Patient weight: obese Heart: regular rate and rhythm Lungs: clear to auscultation Airway: Mallampati scale class II Neurological: alert and oriented Last oral intake: >/= 8 hours ASA classification: II Emergent: no Anesthetic plan: proceed Anesthesia type and monitoring: general ETT and standard monitoring Results Review: All pre-operative results and documents have been reviewed as part of the pre-operative evaluation. Informed Consent: The patient's anesthetic plan and its attendant risks and benefits were discussed with the patient/family/POA. Questions were solicited and answers provided to the satisfaction of the patient/family/POA.
[2023-03-04] MEDS: KETOROLAC 15 MG/ML VIAL (*BKC) IV PUSH (11:15)
--- NOTE | 2023-03-04 12:45 | W.PM.PROC2 ---
Procedure Note - Detailed Date of Procedure 03/04/23 Pre-op Diagnosis etopic , desires sterilization Post-op Diagnosis Same Procedure Performed Laparoscopic salpingectomy with excision ectopic Surgeon Joesph Rogers MD Anesthesia General Indications this is 27 old multiparous female with a history of a right ectopic with known ectopic of unknown of unknown origin. She also desired permanent sterilization Findings ectopic in the left fallopian tube. Moderate amount of clots were present as well. The right fallopian tube was somewhat scarred to the ovary but able to be removed without difficulty Description of Procedure patient is prepped draped in sterile fashion placed in the dorsal lithotomy position. Under excellent general trach anesthesia weighted speculum placed post fornix vagina. Anterior lip of the cervix grasped with single-tooth tenaculum. Hernandez's cannula inserted the cervix attached to the single-tooth to be used later for uterine manipulation. Bladder was drained of clear urine the weighted speculum was removed. Gloves were changed. An infraumbilical incision made the Veress needle passed in the abdomen. Abdomen filled with CO2 gas for to 15mm Hg. The 5mm trocar advanced under direct visualization assuring no injury. At that point the patient had a little bit of tachycardia and responded quickly to medications via and nests. The patient placed in Trendelenburg and a suprapubic incision made. The 5mm trocar advanced under direct visualization assuring the ectopic was seen and suction was undertaken of the clots and debris in the cul-de-sac etc.. A left lower quadrant incision made in the 10mm trocar advanced under direct visualization assuring injury. The fallopian tube was sharply dissected using the LigaSure to the be origin of it from the uterus. This was repeated on the contralateral side as well. These were both placed in an Endo-Catch and removed through the left lower quadrant incision. The irrigation was undertaken to completely clear the pedicles were hemostatic the lower sites removed after gas removed from the abdomen. The upper site removed the incisions closed glue. Instruments removed from the vagina. All sponge needle instrument were correct. There were no immediate complications Estimated Blood Loss 50 Drains No Packing No Pathology Yes Complications No immediate complications Condition Stable Disposition PACU
[2023-03-04] MEDS: ONDANSETRON INJ 4 MG/2 ML VIAL IV PUSH (13:22)
[2023-03-04] MEDS: fentaNYL CITRATE INJ (*CRX) 100 MCG/2 ML VIAL 25 MCG IV PUSH ×2 (13:31→13:34)
== END 2023-03-04 15:01 | disposition home or self-care (01) ==
PROVIDERS: PCP Family Medicine; Visit Provider Obstetrics & Gynecology
PROC: (CPT 49320; principal; 2023-03-04 12:00)
DX: O00.102 Left tubal pregnancy without intrauterine pregnancy (principal); Z30.2 Encounter for sterilization
CPT/HCPCS: 59151; 58661; 36415; 86850; 86900; 86901; 88302; A9270; J0461; J1100; J1170; J1885; J2250; J2405; J2704; J2710; J3010; J7030; J7120

== ENCOUNTER 2024-09-23 16:47 | Emergency (ER) | payer OTHER, SELFPAY ==
[2024-09-23 17:00] VITALS: BP 140/71; PULSE 93; RESP 20; TEMP 37; O2SAT 97
--- NOTE | 2024-09-23 17:07 | ED.URI ---
HPI - URI/Sore Throat General Chief Complaint: Upper Respiratory Infection Stated Complaint: Fever/Cough/Chest Pain Time Seen by Provider: 09/23/24 17:10 Source: patient, RN notes reviewed and old records reviewed Mode of arrival: ambulatory Limitations: no limitations History of Present Illness HPI Narrative: 29 year old female who reports 4 day history of sore throat then progressed with 2 days of fevers and cough which is worse at night. Patient reports that she has had some chest discomfort with cough and with deep breathing. Patient reports that she has been taking some Ibuprofen and also some Mucinex for her symptoms. Patient reports that she has had some nasal congestion with drainage and some sinus pressure. denies any known body aches. Patient reports that she has not had any recent travel and is not on any oral contraceptives. MD elicited complaint: cough and sore throat Onset (ago): day(s) (6-7 days) Severity: moderate Description of mucous: clear Able to tolerate fluids by mouth: Yes Treatments prior to arrival: ibuprofen and other (Mucinex) Related Data Home Medications ?Medication ?Instructions ?Recorded ?Confirmed ?Last Taken ?Type bupropion HCl 300 mg 24 hr tablet, mg PO 09/23/24 Unknown History extended release Allergies Allergy/AdvReac Type Severity Reaction Status Date / Time No Known Allergies Allergy Verified 09/23/24 17:05 Review of Systems Review of Systems: CONSTITUTIONAL:Reports malaise, chills, sweats, or fever. EYES: Denies visual changes, redness, or discharge. ENT: Reports rhinorrhea, congestion, sinus pain, no otalgia and positive for some sore throat. CARDIOVASCULAR: Denies chest pain, palpitations, or edema. RESPIRATORY: Reports cough.? Denies dyspnea.reports that cough worse at night and has some chest soreness with cough and deep breathing GASTROINTESTINAL: Denies abdominal pain, nausea, vomiting, diarrhea SKIN: Denies rash or itching. MUSCULOSKELETAL: Denies myalgia. NEUROLOGIC: Denies headache. All systems reviewed & are unremarkable except as noted in HPI and below PMFSH Past Medical History Medical History (Updated 09/25/24 @ 10:24 by Stephanie Quiroz NP) Anxiety and depression Ectopic Obesity Spotting affecting Surgical History Surgical History Hx of bilateral salpingectomy History of appendectomy Family History Family History Other Unknown family medical history Social History Social History Smoking status: Never smoker Alcohol intake: never Alcohol use details: SOCIAL Substance use: never Substance use type: does not use Living arrangements: with family Additional living arrangements comments: CHILDREN Gender identity (if verbalized by the patient): Female Sexual Orientation (if Verbalized by the Patient): Straight or Heterosexual Spiritual care concerns: No Comments At time of signature, agree with nursing past medical, surgical, social and family history. There is no relevant family history pertinent to the presenting complaint Exam Narrative: GENERAL: Well-appearing, well-nourished, and in no acute distress. HEAD: Normocephalic EYES: PERRLA, conjunctivae clear ENT: Nares clear, turbinates edematous and erythematous, clear discharge, sinus pressure. Mucous membranes moist. TM pearly beyer with dull light reflex bilaterally; no tragal tenderness. Oropharynx erythematous without lesions. Tonsils not enlarged and without exudate, no drooling, no hoarseness, no trismus, uvula midline.post nasal drainage NECK: Supple. No lymphadenopathy CHEST: Clear to auscultation, breath sounds equal. No wheezing, rhonchi, rales, or stridor. No respiratory distress, speaks in full sentences.frequent cough noted, SAO2 97% on room air HEART: Regular rate and rhythm. No murmur heard. SKIN: Warm, dry, no rash. NEURO: Alert and oriented x3. PSYCH: Normal mood and affect Course Course Emergency Course: Patient is aware of diagnosis, understands and agrees to treatment plan.? Anticipatory guidance given.? Patient agrees to follow-up as directed and is aware of reasons to seek care at the emergency department. Portions of this record may have been created with voice recognition software Level of Care: Express Care Visit Vital Signs Vital signs: Vital Signs Temperature 37.0 C 09/23/24 17:00 Pulse Rate 93 09/23/24 17:00 Respiratory Rate 20 09/23/24 17:00 Blood Pressure 140/71 09/23/24 17:00 Pulse Oximetry 97 09/23/24 17:00 Oxygen Delivery Room Air 09/23/24 17:00 Temperature 37.0 C 09/23/24 17:00 Pulse Rate 93 09/23/24 17:00 Respiratory Rate 20 09/23/24 17:00 Blood Pressure 140/71 09/23/24 17:00 Pulse Oximetry 97 09/23/24 17:00 Oxygen Delivery Room Air 09/23/24 17:00 Reviewed MDM - URI/Sore Throat MDM Narrative Medical decision making narrative: Differential diagnosis considered: Tena virus, strep pharyngitis, allergic rhinitis, upper respiratory tract infection, sinusitis, rhinosinusitis, nasopharyngitis. viral pharyngitis, otitis media, otitis externa, pneumonia, bronchitis, viral cough syndrome, viral syndrome, and influenza.? Exam findings show no acute concerns or changes; patient is non-toxic appearing and is in no distress.? Patient is appropriate for outpatient treatment and follow-up. Differential Diagnosis Differential diagnosis: Likely upper respiratory infection, sinusitis, viral infection, pharyngitis and other (acute cough) Medical Records Attestation: I reviewed the patient's medical records. Lab Data Attestation: I reviewed the patient's lab results. Critical Care Time Critical Care Time Critical Care Time: No Discharge Plan Discharge Clinical Impression: Acute cough Sinusitis Qualifiers: Sinusitis location: pansinusitis Chronicity: acute Recurrence: not specified as recurrent Qualified Code(s): J01.40 - Acute pansinusitis, unspecified Patient Disposition: Home, Self-Care Condition: Stable Instructions: Antibiotic Form, Sinusitis (ED), Acute Cough (ED) Additional Instructions: Increase fluids especially juices and water [id number] cough and cold medicine of your choice for your symptoms Zyrtec Claritin Patricia daily Cough tablets as directed for cough--do not bite, chew or suck on--swallow whole Tylenol or ibuprofen for any fever pain Steroids as directed--take with food heat to the face 20-30 minutes 4-6 times a day for pain Salt water gargles, throat lozenges or throat sprays as desired Antibiotic as directed--finished the medication If your symptoms persist, change or worsen significantly before you can contact your personal physician then please, without delay, go to the emergency department for further evaluation. Follow-up with PCP in 7-10 days or sooner if needed Follow up with PCP soon in regards to your blood pressure which is elevated above threshold for referral. Blood pressure above 120/80 may indicate pre-hypertension.140/71 Patient Language: Romansh Prescriptions: New amoxicillin-pot clavulanate 875-125 mg tablet 1 tablet PO Q12H Qty: 20 0RF Rx Instructions: take with food, include probiotics or Activa yogurt while taking this medication prednisone 20 mg tablet 20 mg PO BID Qty: 10 0RF Rx Instructions: take with food No Action bupropion HCl 300 mg tablet extended release 24 hr PO Follow-up/Referrals: PHYSICIAN NOT ON STAFF,NONSTAFF [Primary Care Provider] - Time of Disposition: 17:36 Quality Vivienne Coma Scale Eyes: Open Verbal: Oriented and Alert Motor: Follows Commands Vivienne Coma Total Score: 15
== END 2024-09-23 17:42 | disposition home or self-care (01) ==
PROVIDERS: Emergency Provider Registered Nurse
DX: J01.40 Acute pansinusitis, unspecified (principal); Z79.899 Other long term (current) drug therapy
CPT/HCPCS: 99213; G0463

== ENCOUNTER 2025-02-23 08:15 | Emergency (ER) | payer OTHER, SELFPAY ==
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
--- OUTSIDE RECORDS SUMMARY | 2025-02-23 08:18 | XMS_ITS | Clinical Summary ---
Author Organization [facility] Address [address] [place] [address] Care Team Providers Care Tying Machine Operator Name Role Phone Joesph Willis MD Unavailable [phone] Allergies No known active allergies Medications acetaminophen (TYLENOL) 500 mg tablet Take 1 tablet (500 mg total) by mouth every 4 (four) hours as needed Active fluticasone propionate (FLONASE) 50 mcg/actuation nasal spray Administer 2 sprays into each nostril daily 3 each 2 Active Additional Information Patient not taking.Reported on 12/29/2022 buPROPion XL (WELLBUTRIN XL) 150 mg 24 hr tabletIndicatio ns:Anxiety with Depression Take 1 tablet (150 mg total) by mouth every morning 90 tablet 1 2 Active LORazepam (ATIVAN) 0.5 mg tablet Take 1 tablet (0.5 mg total) by mouth every 6 (six) hours as needed for anxiety 30 tablet 5 3 Active Active Problems Problem Noted Date Diagnosed Date Viral upper respiratory infection 12/29/2022 Assessment & Plan (12/29/2022 11:26 AM CDT): -Rapid COVID, influenza, and strep negative in office today. Increase fluids, rest and handwashing Hot water/hot tea with honey 1 teaspoon of honey every 4 hours No sharing cups or utensils Good hand washing routine Tylenol/Iibuprofen as needed for fever, body aches, etc. Use a humidifier, recommended steam inhalation, hot showers Saline/Salt water gargles, saline nose drops as needed Watch for worsening symptoms, i.e.increasing fever, productive cough, headache, sore throat, excessive tiredness, rash etc Seasonal allergic rhinitis due to pollen 023 Assessment & Plan (12/07/2022 3:24 PM CDT): Cetirizine 10 mg (Zyrtec) daily for one month Dysfunction of left eustachian tube 12/07/2022 Assessment & Plan (12/07/2022 3:25 PM CDT): Cetirizine 10 mg (Zyrtec) daily for one month TMJ dysfunction discussed and handout provided Perforation of left tympanic membrane 08/14/2022 Assessment & Plan (08/14/2022 3:31 PM TOLL SERVICE OBSERVER): Patient has been referred to ENT. Generalized anxiety disorder 06/02/2022 Assessment & Plan (08/14/2022 3:29 PM TOLL SERVICE OBSERVER): Clinically improved, continue current prescription medications. Assessment & Plan (06/02/2022 1:25 PM CDT): Trial of bupropion xl. Strongly encouraged patient to seek out CBT. Recommended patient try [facility]. Class 1 obesity due to exces s calories without serious comorbidity with body mass index (BMI) of 33.0 to 33.9 in adult 06/02/2022 Assessment & Plan (12/29/2022 7:07 AM CDT): HPI: Condition is not at/near goal goal BMI <30 A&P: Healthy, high-protein, lower carbohydrate, lower fat lifestyle and exercise for 150min/week recommended Assessment & Plan (08/12/2022 12:08 PM TOLL SERVICE OBSERVER): HPI: Condition is stable goal BMI <30 A&P: Healthy, high-protein, lower carbohydrate, lower fat lifestyle and exercise for 150min/week recommended Recommend tracking everything you put in your mouth on an aar like [employer] Hand Measurements: A fist or cupped hand = 1 cup 1 cup = 1 -2 servings of fruit juice 1 oz. of cold cereal 2 oz. of cooked cereal, rice or pasta 8 oz. of milk or yogurt A thumb = 1 oz. of cheese Consuming low-fat cheese helps you meet the required servings from the milk, yogurt and cheese group. 1 oz. of low-fat cheese counts as 8 oz. of milk or yogurt. Handful = 1-2 oz. of snack food Thumb tip = 1 teaspoon Keep high-fat foods, such as peanut butter and mayonnaise, at a minimum. One teaspoon is equal to the end of your thumb, from the knuckle up. Three teaspoons equals 1 tablespoon. Palm = 3 oz. of meat Choose lean poultry, fish, shellfish and beef. One palm size portion equals 3 oz. for an adult and 1 -2 oz. for a child under 5. 1 tennis ball or a fist= 1/2 cup of fruit and vegetables Healthy diets include a variety of colorful fruits and vegetables every day. The secret to serving size is in your hand. Snacking can add up. Because hand sizes vary, compare your fist size to an actual measuring cup. Mild episode of recurrent major depressive disor ramandeep 07/25/2020 Assessment & Plan (08/14/2022 3:30 PM TOLL SERVICE OBSERVER): Clinically improved, continue current prescription medications. Assessment & Plan (06/02/2022 1:26 PM CDT): Trial of bupropion xl. Strongly encouraged patient to seek out CBT. Recommended patient try [facility]. Acne 10/14/2016 Resolved Problems Problem Noted Date Diagnosed Date Resolved Date Cervical cancer screening 10/14/2016 Chronic fatigue 10/14/2016 06/02/2022 Physical exam, annual 10/14/20162021 Acute streptococcal pharyngitis 12/12/2014 06/02/2022 Overview (12/17/2016): Strep throat Immunizations Immunization Administration Dates Next Due DTP / HiB 01/24/1996,1995,1995 DTaP 11/08/2000,05/01/1998 DTaP / IPV 11/08/2000 HPV, Unspecified 12/04/2008,07/24/2008, 8 Hep A, Pediatric 09/20/2012 Hep A, Unspecified 02/14/2010 Hep B, Adolescent or Pediatric 01/24/1996,1994,1995 HiB 05/01/1998,09/18/1996 IPV 11/08/2000 Influenza, Live, Intranasal, Quadrivalent 06/04/2014 Influenza, Quadrivalent, Spl it, Preservative Free, Intramuscular 10/20/2019 Influenza, Unspecified 06/02/2022(Deferr ed: Patient Refused),11/11/2021(Deferred: Patient Refused) MMRV 11/08/2000,06/09/1996 Meningococcal Conjugate (Menveo) 06/02/2013 Meningococcal Polysaccharide (Menomune) 05/11/2008 OPV, Unspecified 01/24/1996,1995, 5 Tdap 03/27/2021,04/01/2020,02/16/2006 Surgical History Surgery Date Site/Laterality Comments OTHER SURGICAL HISTORY wart removed from foot APPENDECTOMY Appendectomy LAPAROSCOPY FOR ECTOPIC 04/10/2022 Family History Medical History Relation Name Comments Other Father doesn't know him/hx Alive an d well; Thyroid disease Mother Thyroid diso rder; Relation Name Status Comments Father doesn't know him/hx Alive Mother Alive Social History Tobacco Use Types Packs/Day Years Used Date Smoking Tobacco: Never Smokeless Tobacco: Never Tobacco Cessation:Counseling Given: Not Answered Alcohol Use Standard Drinks/Week Comments Not Currently 0 (1 standard drink = 0.6 oz pur e alcohol) AUDIT-C Answer Date Recorded Q1: How often do you have a drink containing alc ohol? Monthly or less 06/02/2022 Q2: How many drinks containi ng alcohol do you have on a typical day when you are drinking? 5 or 6 06/02/2022 Q3: How often do you have si x or more drinks on one occasion? Less than monthly 06/02/2022 PHQ-2 Answer Date Recorded PHQ-2 Total Score (If total score is 3 or more points, staff should administer the PHQ-9) 0 12/29/2022 Personal Safety Answer Date Recorded Getting School Help Needed Not on file 07/01 Comments No Sex and Gender Information Value Date Recorded Sex Assigned at Not on file Legal Sex Female 3:37 AM TOLL SERVICE OBSERVER Gender Identity Not on file Sexual Orientation Not on file Obstetrics History Para Term AB IAB SAB Ectopic Multiple Livin g Live Births 1 Date Outcome GA Total Labor Labor/2nd/3rd Weight Sex Type Anes PTL Gaby A1 A5 Name Clin Last Filed Vital Signs Vital Sign Reading Time Taken Comments Blood Pressure 123/66 06/28/2023 10:30 AM CDT Pulse 71 06/28/2023 10:30 AM CDT Temperature 36.5 C (97.7 F) 06/28/2023 10:30 AM CDT Respiratory Rate 18 06/28/2023 10:30 AM CDT Oxygen Saturation 99% 06/28/2023 10:30 AM CDT Inhaled Oxygen Concentration - - Weight 81.6 kg (180 lb) 06/28/2023 10:30 AM CDT Height 157.5 cm (5' 2) 06/28/2023 10:30 AM CDT Body Mass Index 32.92 06/28/2023 10:30 AM CDT Plan of Treatment Health Maintenance Due Date Last Done Comments Cervical Cancer Screening 10/20/2020 10/20/2019 Regular Well Visit/Exam 18-64 08/14/2023 08/14/2022 Depression Screening 12/30/2023 12/29/2022, 08/14/2022, 06/02/2022 Covid-19 Vaccine ( season) 2024 10/14/2021, 09/23/2021 Influenza Vaccine (Season Ended) 2025 10/20/2019, 06/04/2014 DTaP/Tdap/Td Vaccine (9 - Td or Tdap) 03/27/2031 03/27/2021, 04/01/2020, 02/16/2006, Additional history exists Hepatitis B Screening Completed 01/24/1996 , 1995, 1995 Varicella Vaccines Completed 11/08/2000, 06/09/1996 HPV Vaccines Completed 12/04/2008, 07/14, 05/11/2008 Hepatitis C Screening Completed 08/14/2022, 020 Pneumococcal vaccine <65 Aged Out No longer eligible based on patient's age to complete this topic Procedures Procedure Name Priority Date/Time Associated Diagnosis Comments HEPATITIS C ANTIBODY Routine 08/14/2022 1:35 PM TOLL SERVICE OBSERVER Annual physical exam Encounter for hepatitis C screening test for low risk patient THINPREP TIS PAP REFLEX HPV MRNA E6/E7, CHLAMYDIA/N.GONORRH OEAE Routine 10/20/2019 3:32 PM TOLL SERVICE OBSERVER 10 weeks gestation of Encounter for supervision of normal first in first trimester from Last 3 Months or Most Recently Relevant to Health Maintenance Results * Hepatitis C antibody (08/14/2022 1:35 PM TOLL SERVICE OBSERVER) Hep C Ab Nonreactive Nonreactive [facility]) Comment: Interpretive Data Nonreactive: Antibodies to HCV not detected. Does NOT exclude the possibility of recent exposure to HCV. Equivocal: Equivocal for HCV antibodies. Supplemental molecular testing will be automatically performed to determine infection status in accordance with current CDC screening recommendations. Reactive: Positive for HCV antibodies. This may represent current or past HCV infection. Supplemental molecular testing will be automatically performed to determine current infection status in accordance with current CDC screening recommendations. Interpretive data was last revised on 2019. Testing performed by: [facility], [address] [place] [address], [place]., [address] Blood 08/14/2022 1:35 PM TOLL SERVICE OBSERVER 08/15/2022 1:41 PM TOLL SERVICE OBSERVER us Kesha Peng DO LAB MICROBIOLOGY - GENERAL ORDERABLES Final Result [facility] ([place]) 1 [facility] Department [place] [address] * (ABNORMAL) THINPREP TIS PAP REFLEX HPV mRNA E6/E7, CHLAMYDIA/N.GONORRHOEAE (10/20/2019 3:32 PM TOLL SERVICE OBSERVER) CLINICAL INFORMATION: [facility] [place] Comment:Information not prov ided LMP [facility] [place] Comment:INFORMATION NOT PROV IDED Previous Pap [facility] [place] Comment:INFORMATION NOT PROV IDED Prev. Bx [facility] [place] Comment:INFORMATION NOT PROV IDED SOURCE: [facility] [place] Comment:Information not prov ided Pap, specimen adequacy [facility] - Comment: Satisfactory for evaluation. Endocervical/transformation zone component present. Age and/or menstrual status not provided HPV interp [facility] - Comment:Negative for intraep ithelial lesion or malignancy. COMMENTS [facility] - Comment: This Pap test has been evaluated with computer assisted technology. Pump Technician [facility] - Comment: KMY, CT(ASCP) CT screening location: [place] [address] [address] [address] Comment [facility] - Comment: EXPLANATORY NOTE: The Pap is a screening test for cervical cancer. It is not a diagnostic test and is subject to false negative and false positive results. It is most reliable when a satisfactory sample, regularly obtained, is submitted with relevant clinical findings and history, and when the Pap result is evaluated along with historic and current clinical information. C. trachomatis RNA DETECTED(A) NOT DETECTED [facility] [place] Comment: If results do not correlate with clinical findings, testing using an alternate molecular target which amplifies different genetic sequences can be performed on the same sample for result confirmation within 7 days of sample receipt or per performing laboratory specimen retention policy. Alternate target testing is available; 77720 (C. trachomatis) or [address] (N. gonorrhoeae). N. gonorrhoeae RNA NOT DETECTED NOT DETECTED [facility] - [place] Comment [facility] [place] Comment: The analytical performance characteristics of this assay, when used to test SurePath(TM) specimens have been determined by [email or web address]. The modifications have not been cleared or approved by the FDA. This assay has been validated pursuant to the CLIA regulations and is used for clinical purposes. For additional information, please refer to https://education.ZeeVee.Embibe/faq/IBH082 (This link is being provided for information/ educational purposes only.) Endocervical 10/20/2019 3:32 PM TOLL SERVICE OBSERVER 10/23/2019 4:49 AM TOLL SERVICE OBSERVER Narrative Resulting Agency Comment Performing Organization Information: Site ID: [place] Name: [email or web address] Address: [address] [place] [address] Director: Prakash Sweeney D.O., MPH Site ID: [place] [email or web address] Address: [address] [address] Director: Kady Mason Margaret Guzman MD LAB PATHOLOGY ORDERABLES Final Result [facility] [place], [place] [facility] [place] from Last 3 Months or Most Recently Relevant to Health Maintenance Insurance Care Teams Tying Machine Operator Relationship Specialty Start Date End Date Joesph Willis MD [address] [facility] [address] [place] [address] Referring Physician Obstetrics and Gynecology 06/02/22
--- OUTSIDE RECORDS SUMMARY | 2025-02-23 08:18 | XMS_ITS | Clinical Summary ---
Author Organization [email or web address] Address [address] [place] [place] [address] Care Team Providers Care Washer Meat Name Role Phone Roopa Rodriguez MD Primary Care Provider [phone] Source Comments [email or web address],non-owned Affiliates and Associated Physician Practices is amultiple site organization consisting of ambulatory clinics and hospital sitesin [place], [place], [place] and [place]. This disclosure is being madepursuant to the Care Everywhere program and may not contain all information available regarding this patient. Last updated 18.[email or web address] Allergies No known active allergies Medications * Be aware that medications may not be up to date on this document. Alwaysverify current medications with the patient. No known medications Family History Medical History Relation Name Comments Thyroid Disease Mother Relation Name Status Comments Mother Social History Tobacco Use Types Packs/Day Years Used Date Smoking Tobacco: Never Smokeless Tobacco: Never Alcohol Use Standard Drinks/Week Comments Yes 0 (1 standard drink = 0.6 oz pur e alcohol) AUDIT-C Answer Date Recorded Frequency of Alcohol Consumption 2-4 times a wed05/01/2019 Average Number of Drinks Not on file 019 Frequency of Binge Drinking Not on file 04/13 Comments No Sex and Gender Information Value Date Recorded Sex Assigned at Not on file Legal Sex Female 5:36 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 Gender Identity Not on file Sexual Orientation Not on file Last Filed Vital Signs Vital Sign Reading Time Taken Comments Blood Pressure 118/80 05/01/2019 12:21 PM CDT Pulse 73 05/01/2019 12:21 PM CDT Temperature 37 C (98.6 F) 05/01/2019 12:21 PM CDT Respiratory Rate 16 05/01/2019 12:21 PM CDT Oxygen Saturation 98% 05/01/2019 12:21 PM CDT Inhaled Oxygen Concentration - - Weight 75.3 kg (166 lb) 05/01/2019 12:21 PM CDT Height 157.5 cm (5' 2) 05/01/2019 12:21 PM CDT Body Mass Index 30.36 05/01/2019 12:21 PM CDT Plan of Treatment Health Maintenance Due Date Last Done Comments PAP SMEAR 1995 HIV SCREENING 2010 HEPATITIS C SCREENING 05/31/2013 DTAP/TDAP/TD VACCINES (1 - Tdap) 2014 HEPATITIS B VACCINE (1 of 3 - 19+ 3-dose series) 2014 COVID-19 VACCINE ( - 2023-2 5 season) 2024 DEPRESSION SCREENING 09/13/2024 INFLUENZA VACCINE (Season Ended) 2025 06/04/20 14 ZOSTER VACCINE (1 of 2) 2045 HIB VACCINE Aged Out No longer eligi ble based on patient's age to complete this topic HPV VACCINE Aged Out No longer eligi ble based on patient's age to complete this topic MENINGOCOCCAL (Group B) VACC INE SHARED DECISION-MAKING Aged Out No longer eligibl e based on patient's age to complete this topic MENINGOCOCCAL GROUPS A/C/Y/W VACCINE Aged Out No longer eligible b ased on patient's age to complete this topic PNEUMOCOCCAL VACCINE Aged Out No long er eligible based on patient's age to complete this topic Insurance [facility] Care Teams Washer Meat Relationship Specialty Start Date End Date Roopa Rodriguez MD [address] [place] [address] PCP - General 01/23/21
--- OUTSIDE RECORDS SUMMARY | 2025-02-23 08:18 | XMS_ITS | Referral Summary ---
Author Organization [facility] Address [address] [place] [address] Care Team Providers Care Computer Game Tester Name Role Phone Joesph Willis MD Unavailable [phone] Allergies No known active allergies Medications acetaminophen [...] 08/14/2022 Assessment & Plan (08/14/2022 3:31 PM SPINDLE CARVER): Patient has been referred to ENT. Generalized anxiety disorder 06/02/2022 Assessment & Plan (08/14/2022 3:29 PM SPINDLE CARVER): Clinically improved, continue current prescription medications. Assessment [...] recommended Assessment & Plan (08/12/2022 12:08 PM SPINDLE CARVER): HPI: Condition is stable goal BMI <30 A&P: Healthy, high-protein, lower carbohydrate, lower fat lifestyle and exercise for 150min/week recommended Recommend tracking everything you put in your mouth on an ara like [employer] Hand Measurements: A fist or cupped hand [...] 07/25/2020 Assessment & Plan (08/14/2022 3:30 PM SPINDLE CARVER): Clinically improved, continue current prescription medications. Assessment [...] 05/11/2008 OPV, Unspecified 01/24/1996,1995, 5 Tdap 03/27/2021,04/01/2020,02/16/2006 Social History Tobacco Use Types Packs/Day Years [...] on file Legal Sex Female 3:37 AM SPINDLE CARVER Gender Identity Not on file Sexual Orientation [...] 06/28/2023 10:30 AM CDT Plan of Treatment Not on file Procedures Procedure Name Priority Date/Time Associated Diagnosis Comments HEPATITIS C ANTIBODY Routine 08/14/2022 1:35 PM SPINDLE CARVER Annual physical exam Encounter for hepatitis C screening test for low risk patient THINPREP TIS PAP REFLEX HPV MRNA E6/E7, CHLAMYDIA/N.GONORRH OEAE Routine 10/20/2019 3:32 PM SPINDLE CARVER 10 weeks gestation of Encounter for supervision of normal first in first trimester from Last 3 Months or Most Recently Relevant to Health Maintenance Results * Hepatitis C antibody (08/14/2022 1:35 PM SPINDLE CARVER) Hep C Ab Nonreactive Nonreactive [facility] [...] last revised on 2019. Testing performed by: [facility], [address] [place] [address], [place]., [address] Blood 08/14/2022 1:35 PM SPINDLE CARVER 08/15/2022 1:41 PM SPINDLE CARVER us Kesha Peng DO LAB MICROBIOLOGY - GENERAL ORDERABLES Final Result [facility] ([place]) 1 [facility] Department [place] [address] * (ABNORMAL) THINPREP TIS PAP REFLEX HPV mRNA E6/E7, CHLAMYDIA/N.GONORRHOEAE (10/20/2019 3:32 PM SPINDLE CARVER) CLINICAL INFORMATION: [facility] [place] Comment:Information [...] and/or menstrual status not provided HPV interp [facility] [place] Comment:Negative for intraep ithelial lesion or malignancy. COMMENTS [facility] - Comment: This Pap test has been evaluated with computer assisted technology. Waistline Joiner [facility] - Comment: KMY, CT(ASCP) CT screening location: [place] [address] [place] [address] Comment [facility] - Comment: EXPLANATORY NOTE: The Pap [...] information. C. trachomatis RNA DETECTED(A) NOT DETECTED [facility] [place] Comment: If results do not correlate with clinical findings, testing using an alternate molecular target which amplifies different genetic sequences can be performed on the same sample for result confirmation within 7 days of sample receipt or per performing laboratory specimen retention policy. Alternate target testing is available; [address] (C. trachomatis) or [address] (N. gonorrhoeae). N. gonorrhoeae RNA NOT DETECTED NOT DETECTED [facility] - [place] Comment [facility] [place] Comment: The analytical performance characteristics of this assay, when used to test SurePath(TM) specimens have been determined by Currently. The modifications have not been cleared or approved by the FDA. This assay has been validated pursuant to the CLIA regulations and is used for clinical purposes. For additional information, please refer to https://education.SDI/faq/BAA084 (This link is being provided for information/ educational purposes only.) Endocervical 10/20/2019 3:32 PM SPINDLE CARVER 10/23/2019 4:49 AM SPINDLE CARVER Narrative Resulting Agency Comment Performing Organization Information: Site ID: [place] Name: [facility] Address: [address] [address] Director: Prakash Sweeney D.O., MPH Site ID: [place] [facility]: [facility] Address: [address] [place] [address] Director: Kady Mason Margaret Guzman MD LAB PATHOLOGY ORDERABLES Final Result [facility] [place] [facility] [place] from Last 3 Months or Most Recently Relevant to Health Maintenance Insurance [facility] Care Teams Computer Game Tester Relationship Specialty Start Date End Date Joesph Willis MD [address] [facility] [address] [facility] [address] [place] [address] Referring Physician Obstetrics and Gynecology 06/02/22
--- OUTSIDE RECORDS SUMMARY | 2025-02-23 08:18 | XMS_ITS | Clinical Summary ---
Author Organization [facility] Address [address] [facility] [address] [place] [address] Phone Care Team Providers Care Clerical Proofreader Name Role Phone Unavailable Primary Care Provider Unavailabl e Allergies No known active allergies Medications fluticasone (FLONASE) 50 MCG/ACT SuspensionIndica tions:Conductive hearing loss of left ear with unrestricted hearing of right ear 1-2 Sprays by Nasal route daily. 1-2 sprays each nostril daily for nasal congestion and allergies. 1 Bottle 1 9 Active Additional Information Patient not taking.Reported on 12/09/2021 escitalopram (LEXAPRO) 10 MG Tablet escitalopram 10 mg tablet TAKE 1/2 TABLET BY MOUTH FOR ONE WEEK, THEN TAKE 1 TABLET BY MOUTH DAILY Active ferrous sulfate 325 (65 Fe) MG Tablet Take 325 mg by mouth daily. 1 Active Vit-Fe Fumarate-FA ( VITAMIN PO) Take by mouth daily. Active acetaminophen (TYLENOL) 500 MG Tablet Take 500 mg by mouth every 4 hours as needed. Active Balcoltra 0.1-20 MG-MCG(21) Tablet TAKE ONE TABLET BY MOUTH ONCE DAILY 1 Active Active Problems Problem Noted Date Diagnosed Date Physical exam, annual (Adult) 10/14/2016 Chronic fatigue 10/14/2016 Acne 10/14/2016 Cervical cancer screening 10/14/2016 Immunizations Immunization Administration Dates Next Due DTAP VACCINE 05/01/1998 DTAP VACCINE, UNSPECIFIED FORMULATION 11/08/2000 DTP-Hib 01/24/1996,1995,1995 Hepatitis A Vaccine, Pediatr ic/adolescent, 2 Dose Schedule 09/20/2012 Hepatitis A Vaccine,unspecified Formulation 12/2009 Hepatitis B Vaccine, Pediatric/adolescent 1995,1995,1995 Hib (HbOC) 05/01/1998,09/18/1996 Hib Vaccine,unspecified Formulation 05/01/1998,0 09/18/1996 Hpv, Unspecified Formulation 12/04/2008,07/24/20,05/11/2008 Inactivated Polio Vaccine 11/08/2000 Influenza Vaccine Quadrivalent Nasal 06/04/2014 Influenza Vaccine, Quadrivalent, PF 10/20/2019 MMR Vaccine 11/08/2000,06/09/1996 Meningococcal MCV4O 06/02/2013 Meningococcal Polysaccharide Vaccine (MPSV4) 05/11/2008 OPV 01/24/1996,1995,1995 Oral Polio Vaccine, Unspecified Formulation 01/11,1995,1995 TDAP Vaccine 03/27/2021,04/01/2020,02/16/2006 Family History Medical History Relation Name Comments No Known Problems Father Thyroid Disease Mother Relation Name Status Comments Father Alive Mother Alive Social History Tobacco Use Types Packs/Day Years Used Date Smoking Tobacco: Never Smokeless Tobacco: Never Tobacco Cessation:Counseling Given: No Alcohol Use Standard Drinks/Week Comments Not Currently 0 (1 standard drink = 0.6 oz pur e alcohol) PHQ-2 Answer Date Recorded PHQ-2 Score 0 05/11/2019 Sexually Active Control Partners Comments Not Currently None Male Comments No Sex and Gender Information Value Date Recorded Sex Assigned at Not on file Legal Sex Female 7:45 PM CDT Gender Identity Not on file Sexual Orientation Not on file Last Filed Vital Signs Vital Sign Reading Time Taken Comments Blood Pressure 116/70 12/09/2021 12:25 PM CDT Pulse 97 12/09/2021 12:25 PM CDT Temperature 36.7 C (98.1 F) 12/09/2021 12:25 PM CDT Respiratory Rate 20 12/09/2021 12:25 PM CDT Oxygen Saturation 99% 12/09/2021 12:25 PM CDT Inhaled Oxygen Concentration - - Weight 77.1 kg (170 lb) 12/09/2021 12:25 PM CDT Height 157.5 cm (5' 2) 03/30/2021 3:38 PM CDT Body Mass Index 31.09 03/30/2021 3:38 PM CDT Plan of Treatment Health Maintenance Due Date Last Done Comments Hepatitis C Virus (HCV) Screening 1995 SARS-COV-2 Immunization ( season) 2024 10/14/2021, 09/23/2021 Influenza Immunization (Season Ended) 2025 10/20/2019, 06/04/2014 DTaP/Tdap/Td Immunization (9 - Td or Tdap) 03/27/2031 03/27/2021, 04/01/2020, 02/16/2006, Additional history exists Td Immunization Every 10 Years (Adults With 1 Tdap) 03/27/2031 03/27/2021, 04/01/2020, 02/16/2006 Respiratory Syncytial Virus (RSV) Immunization (Adult) (1 - 1-dose 75+ series) 2070 Hepatitis B Immunization Completed 996, 1995, 1995 Human Papillomavirus (HPV) Immunization Completed 12/04/2008, 07/24/2008, 05/11/2008 Meningococcal Immunization (ACWY) Completed 06/02/2013, 05/11/2008 Pap Smear Discontinued 11/13/2016 Pneumococcal Immunization Combined Aged Out No longer eligible based on patient's age to complete this topic Rotavirus Immunization Aged Out No lo nger eligible based on patient's age to complete this topic Procedures Procedure Name Priority Date/Time Associated Diagnosis Comments PATHOLOGY CYTOLOGY TAX EVALUATOR Routine 11/13/2016 4:57 PM ATTENDING RADIOLOGIST Well woman exam with routine gynecological exam Cervical cancer screening from Last 3 Months or Most Recently Relevant to Health Maintenance Results * PATHOLOGY CYTOLOGY TAX EVALUATOR (11/13/2016 4:57 PM ATTENDING RADIOLOGIST) SPECIMEN ADEQUACY Satisfactory for evaluation. Endocervical cells present. 11/27/2016 2:[address] [facility] DESCRIPTIVE DIAGNOSIS Negative for intraepithelial lesions. No dysplastic cells present. 11/27/2016 2:[address] [facility] at 1449 CDT AUTOMATED EXAMINATION Analysis of this sample has been assisted by an automated imaging and review system ([employer] System, [employer], [place], [place]). This case is further evaluated and finalized by a executive creative director and/or pathologist. 11/27/2016 2:[address] [facility] DISCLAIMER The PAP smear is a screening test designed to detect cancerous or precancerous cells of the uterine cervix. It is one of the best means available for detection of cervical cancer but still carries an inherent false-negative rate. The consequences of a false-negative PAP result can be minimized by adhering to current screening guidelines. The following are general guidelines recommended by the ACS, ASCP, ASCCP, and ACOG: PAP testing is recommended every three years for women 21-29, Co-Testing, a PAP test in conjunction with an HPV (Human Papillomavirus) test for women ages 30-65, and no PAP or HPV testing for women under the age of 21 or older than 65 unless clinically indicated. 11/27/2016 2:[address] [facility] Case Report Gynecologic Cytology Report Case: [id number] Authorizing Provider: Mello Sellers MD Collected: 11/13/2016 04:57 PM Ordering Location: [facility] Received: 11/15/2016 12:43 PM [facility] First Screen: Kristen Thakur. Specimen: Cervical/Endocervic al, liquid based thin layer preparation (Thin Prep ), CERVIX/ENDOCERVIX 11/27/2016 2:[address] [facility] HPV Reflex if ASCUS? Yes 11/27/2016 2:[address] [facility] Specimen of unknown material (specimen) CERVIX UTERI STRUCTURE / Unknown 11/13/2016 4:57 PM ATTENDING RADIOLOGIST 11/15/2016 12:43 PM ATTENDING RADIOLOGIST us Mello Sellers MD PATHOLOGY/CYTOLOGY ORDERABL ES Final Result [facility] [address] [place] [place] [address], [place] from Last 3 Months or Most Recently Relevant to Health Maintenance Insurance MEDICA[employer]
[2025-02-23 08:24] VITALS: BP 130/67; PULSE 87; RESP 16; TEMP 37.2; O2SAT 98
[2025-02-23 08:39] LABS: EDSTREPNEGPOS1 Negative (Negative)
--- NOTE | 2025-02-23 08:40 | ED.URI ---
HPI - URI/Sore Throat General Chief Complaint: Upper Respiratory Infection Stated Complaint: Sore Throat Time Seen by Provider: 02/23/25 08:32 Source: patient and RN notes reviewed Mode of arrival: ambulatory Limitations: no limitations History of Present Illness HPI Narrative: Patient presents today with a 4 day history of cough, sore throat, nasal congestion. Denies fever, shortness of breath, or difficulty swallowing. Currently rates her pain 6/10 and has tried Mucinex with some mild relief. Pain increases with swallowing. Related Data Allergies Allergy/AdvReac Type Severity Reaction Status Date / Time No Known Allergies Allergy Verified 09/23/24 17:05 Review of Systems Review of Systems: CONSTITUTIONAL: Denies body aches, fever, chills, or sweats. EYES: Denies visual changes, redness, or discharge. ENT: Denies rhinorrhea, or otalgia.+ congestion, sore throat CARDIOVASCULAR: Denies chest pain, palpitations, or edema. RESPIRATORY: Denies dyspnea.+ cough GASTROINTESTINAL: Denies abdominal pain, nausea, vomiting, or diarrhea. GENITOURINARY: Denies dysuria or hematuria. SKIN: Denies rash, itching, or wounds. MUSCULOSKELETAL: Denies back pain, joint pain, or myalgia. NEUROLOGIC: Denies headache, numbness, tingling, or weakness. PSYCH: Denies depression or anxiety. [facility] Past Medical History Medical History Anxiety and depression Ectopic Obesity Spotting affecting Surgical History Surgical History Hx of bilateral salpingectomy History of appendectomy Family History Family History Other Unknown family medical history Social History Social History Smoking status: Never smoker Alcohol intake: never Alcohol use details: SOCIAL Substance use: never Substance use type: does not use Living arrangements: with family Additional living arrangements comments: CHILDREN Gender identity (if verbalized by the patient): Female Sexual Orientation (if Verbalized by the Patient): Straight or Heterosexual Spiritual care concerns: No Comments At time of signature, I have reviewed and agree with nursing past medical, surgical, social and family history unless otherwise noted. Please see nursing chart for further information. There is no relevant family history pertinent to the presenting complaint Exam Narrative: GENERAL: Well-appearing, well-nourished, and in no acute distress. HEAD: Normocephalic, atraumatic. EYES: EOMI. No redness or drainage. Conjunctivae normal. ENT: Mucous membranes pink and moist. Nares mildly congested. No rhinorrhea. TMs normal bilaterally. Throat mildly erythematous without edema or exudate. Uvula midline. NECK: Normal AROM. Supple. No lymphadenopathy. CHEST: No respiratory distress. Clear to auscultation. HEART: Regular rate and rhythm. No murmur appreciated. EXTREMITIES: Normal range of motion. No edema. SKIN: Warm, dry, no rash. Capillary refill normal. Normal skin turgor. NEURO: No focal deficits. Alert and oriented x3. Gait steady. PSYCH: Normal affect. No signs of depression or anxiety. Course Course Level of Care: Express Care Visit Vital Signs Vital signs: Vital Signs Temperature 99 F 02/23/25 08:24 Pulse Rate 87 02/23/25 08:24 Respiratory Rate 16 02/23/25 08:24 Blood Pressure 130/67 02/23/25 08:24 Pulse Oximetry 98 02/23/25 08:24 Oxygen Delivery Room Air 02/23/25 08:24 Temperature 99 F 02/23/25 08:24 Pulse Rate 87 02/23/25 08:24 Respiratory Rate 16 02/23/25 08:24 Blood Pressure 130/67 02/23/25 08:24 Pulse Oximetry 98 02/23/25 08:24 Oxygen Delivery Room Air 02/23/25 08:24 Reviewed MDM - URI/Sore Throat MDM Narrative Medical decision making narrative: Rapid strep negative. Culture pending. Symptoms likely viral in etiology. Discussed slio-tym-aubciry medication use and duration of illness. No prescription medications indicated at this time. Anticipatory guidance given. Differential Diagnosis Differential diagnosis: Likely upper respiratory infection, otitis media, viral infection, pharyngitis and other (Strep throat) Lab Data Attestation: I reviewed the patient's lab results. Labs: Lab Results 02/23/25 Range/Units 08:37 POC Grp A Strep Screen Negative (Negative) Critical Care Time Critical Care Time Critical Care Time: No Discharge Plan Discharge Clinical Impression: Upper respiratory infection Qualifiers: URI type: unspecified URI Qualified Code(s): J06.9 - Acute upper respiratory infection, unspecified Patient Disposition: Home Condition: Stable Instructions: Upper Respiratory Infection (DC) Additional Instructions: Your rapid strep swab was negative today at [facility]. You will be notified in a few days if the culture comes back positive for strep, and appropriate antibiotics will be called in for you at that time. Your symptoms are likely due to a viral illness, which is not treated with antibiotics. Viral symptoms can be present for up to 7-10 days. Take Tylenol or ibuprofen for fever or pain. Consider a nasal spray such as Flonase to help with nasal congestion. Rest and stay hydrated. Follow up with your PCP in 7 days if symptoms are not improving. Go to the ER immediately if you have any difficulty breathing or swallowing. Your blood pressure was elevated above 120/80 today at Urgent Care. This puts you above the threshold for follow up. Please schedule a followup visit with your personal physician as soon as possible, for further evaluation and treatment. Even blood pressure exceeding 120/80 may indicate pre-hypertension. Patient Language: Sinhala Follow-up/Referrals: PHYSICIAN NOT ON STAFF,NONSTAFF [Primary Care Provider] - Time of Disposition: 08:43
== END 2025-02-23 08:49 | disposition home or self-care (01) ==
PROVIDERS: Emergency Provider Nurse Practitioner
DX: J06.9 Acute upper respiratory infection, unspecified (principal); E66.9 Obesity, unspecified; Z68.31 Body mass index [BMI] 31.0-31.9, adult
CPT/HCPCS: 87081; 87880; 99213; G0463

== ENCOUNTER 2025-05-15 12:12 | Emergency (ER) | payer OTHER, SELFPAY ==
--- OUTSIDE RECORDS SUMMARY | 2025-05-15 12:15 | XMS_ITS | Clinical Summary ---
Author Organization [facility] Address [address] [place] [address] Care Team Providers Care Printing Services Coordinator Name Role Phone Joesph Willis MD Unavailable [phone] Allergies No known active allergies Medications acetaminophen [...] 08/14/2022 Assessment & Plan (08/14/2022 3:31 PM SANE NURSE): Patient has been referred to ENT. Generalized anxiety disorder 06/02/2022 Assessment & Plan (08/14/2022 3:29 PM SANE NURSE): Clinically improved, continue current prescription medications. Assessment [...] recommended Assessment & Plan (08/12/2022 12:08 PM SANE NURSE): HPI: Condition is stable goal BMI <30 A&P: Healthy, high-protein, lower carbohydrate, lower fat lifestyle and exercise for 150min/week recommended Recommend tracking everything you put in your mouth on an ara like [employer]ica Hand Measurements: A fist or cupped hand [...] 07/25/2020 Assessment & Plan (08/14/2022 3:30 PM SANE NURSE): Clinically improved, continue current prescription medications. Assessment [...] on file Legal Sex Female 3:37 AM SANE NURSE Gender Identity Not on file Sexual Orientation [...] ( season) 2024 10/14/2021, 09/23/2021 Influenza Vaccine (#1) 2025 10/20/2019, 2013 DTaP/Tdap/Td Vaccine (9 - Td or Tdap) [...] HEPATITIS C ANTIBODY Routine 08/14/2022 1:35 PM SANE NURSE Annual physical exam Encounter for hepatitis C screening test for low risk patient THINPREP TIS PAP REFLEX HPV MRNA E6/E7, CHLAMYDIA/N.GONORRH OEAE Routine 10/20/2019 3:32 PM SANE NURSE 10 weeks gestation of Encounter for supervision of normal first in first trimester from Last 3 Months or Most Recently Relevant to Health Maintenance Results * Hepatitis C antibody (08/14/2022 1:35 PM SANE NURSE) Hep C Ab Nonreactive Nonreactive JOCELIN CASTILLO [...] last revised on 2019. Testing performed by: [facility], [address] [place] [address], [place]., [address] Blood 08/14/2022 1:35 PM SANE NURSE 08/15/2022 1:41 PM SANE NURSE us Kesha Peng DO LAB MICROBIOLOGY - GENERAL ORDERABLES Final Result JOCELIN CASTILLO (CORINNE) 1 [facility] [place] [address] * (ABNORMAL) THINPREP TIS PAP REFLEX HPV mRNA E6/E7, CHLAMYDIA/N.GONORRHOEAE (10/20/2019 3:32 PM SANE NURSE) CLINICAL INFORMATION: [facility] [place] Comment:Information [...] and/or menstrual status not provided HPV interp [facility] - Comment:Negative for intraep ithelial lesion or malignancy. COMMENTS [facility] - Comment: This Pap test has been evaluated with computer assisted technology. [facility] - Comment: KMY, CT(ASCP) CT screening location: [place] [address] [address] [address] Comment [facility] - Comment: EXPLANATORY NOTE: [...] information. C. trachomatis RNA DETECTED(A) NOT DETECTED [facility] [place] Comment: If results do not correlate with clinical findings, testing using an alternate molecular target which amplifies different genetic sequences can be performed on the same sample for result confirmation within 7 days of sample receipt or per performing laboratory specimen retention policy. Alternate target testing is available; [address] (C. trachomatis) [place] [address] (N. gonorrhoeae). N. gonorrhoeae RNA NOT DETECTED NOT DETECTED [facility] [place] Comment [facility] [place] Comment: The analytical performance characteristics of this assay, when used to test SurePath(TM) specimens have been determined by [facility]. The modifications have not been cleared or approved by the FDA. This assay has been validated pursuant to the CLIA regulations and is used for clinical purposes. For additional information, please refer to https://education.UB Access.Altacor/faq/CZV499 (This link is being provided for information/ educational purposes only.) Endocervical 10/20/2019 3:32 PM SANE NURSE 10/23/2019 4:49 AM SANE NURSE Narrative Resulting Agency Comment Performing Organization Information: Site ID: [place] [facility] Address: [address] [address] Director: Prakash Sweeney D.O., MPH Site ID: [place] [facility] Address: [address] [address] [address] Director: Kady Mason Margaret Guzman MD LAB PATHOLOGY ORDERABLES Final Result [facility] [place], [place] [facility] [place] [address] from Last 3 Months or Most Recently Relevant to Health Maintenance Insurance Care Teams Printing Services Coordinator Relationship Specialty Start Date End Date Joesph Willis MD [address] [facility] [address] [place] [address] Referring Physician Obstetrics and Gynecology 06/02/22
--- OUTSIDE RECORDS SUMMARY | 2025-05-15 12:15 | XMS_ITS | Encounter Summary ---
Author Organization [facility] Address [address] [place] [address] Phone Care Team Providers Care Double Ending Machine Operator Name Role Phone Unavailable Primary Care Provider Unavailabl e Reason for Referral * Other (Routine) - Open Specialty Diagnoses / Procedures Referred By Kimmy soares Referred To Contact Neurology Diagnoses Paresthesia of right lower extremity Procedures EMG 2 EXTREMITY W/WO RELATED PARASPINAL Juli Miranda DPM [address] [place] [address] Phone: tel: fax: Referral ID Status Reason Start Date Expiration Date Visits Re quested Visits Authorized [id number] Open 05/15/2025 1 1 Encounter Details Date Type Department Care Team (Latest Contact Info) Description 05/15/[address] [facility] Central Scheduling [address] [place] [id number] Juli Miranda DPM [address] [place] [address] Paresthesia of right lower extremity (Primary Dx) Social History Tobacco Use Types Packs/Day Years Used Date Smoking Tobacco: Never Smokeless Tobacco: Never Alcohol Use Standard Drinks/Week Comments Not Currently [...] on file Sexual Orientation Not on file documented as of this encounter Plan of Treatment Scheduled Orders Name Type Priority Associated Diagnoses Orde r Schedule EMG 2 EXTREMITY W/WO RELATED PARASPINAL Neurology Routine Paresthesia of right lower extremity Expected: 05/15/2025, Expires: 05/11/2026 documented as of this encounter Visit Diagnoses Diagnosis Paresthesia of right lower extremity- Primary documented in this encounter Additional Health Concerns Assessment Noted Time PHQ-9 Depression Total Score: 0 01/17/20 19 3:03 PM CDT documented as of this encounter
--- OUTSIDE RECORDS SUMMARY | 2025-05-15 12:15 | XMS_ITS | Clinical Summary ---
Author Organization [facility] Address [address] [place] [address] Care Team Providers Care Interior Design Project Manager Name Role Phone Roopa Rodriguez MD Primary Care Provider Source Comments [facility],non-owned Affiliates and Associated Physician Practices is amultiple site organization consisting of ambulatory clinics and hospital sitesin [place], [place], [place] and [place]. This disclosure is being madepursuant to the Care Everywhere program and may not contain all information available regarding this patient. 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 Gender Identity Not on file Sexual Orientation [...] Health Maintenance Due Date Last Done Comments HIV SCREENING 2010 HEPATITIS C SCREENING 05/31/2013 DTAP/TDAP/TD VACCINES (1 - Tdap) 2014 HEPATITIS B VACCINE (1 of 3 - 19+ 3-dose series) 2014 PAP SMEAR 2016 HPV VACCINE (1 - 3-dose SCDM series) 2022 COVID-19 VACCINE (1 - 2023-2 5 season) 2024 DEPRESSION SCREENING 09/13/2024 INFLUENZA VACCINE (#1) 2025 06/04/2014 ZOSTER VACCINE (1 of 2) 2045 HIB [...] patient's age to complete this topic Insurance [facility] Care Teams Interior Design Project Manager Relationship Specialty Start Date End Date Roopa Rodriguez MD [address] [place] [address] PCP - General 01/23/21
--- OUTSIDE RECORDS SUMMARY | 2025-05-15 12:15 | XMS_ITS | Clinical Summary ---
Author Organization [facility] Address [address] [address] Phone Care Team Providers Care Pipelaying Fitter Name Role Phone Unavailable Primary Care Provider [...] 10/14/2016 Acne 10/14/2016 Cervical cancer screening 10/14/2016 Encounters Date Type Department Care Team Description 05/15/2025 Transcribe Orders [facility] Central Scheduling [address] [place] [address] Juli Miranda, DPM Paresthesia of right lower extremity (Primary Dx) from Last 3 Months Immunizations Immunization Administration Dates Next Due DTAP VACCINE 05/01/1998 DTAP VACCINE, UNSPECIFIED FORMULATION 11/08/2000 DTP-Hib 01/24/1996,1995,1995 Hepatitis A Vaccine, Pediatr ic/adolescent, 2 Dose Schedule 09/20/2012 Hepatitis A Vaccine,unspecified Formulation 12/2009 Hepatitis B Vaccine, Pediatric/adolescent 1995,1995,1995 Hib (HbOC) 05/01/1998,09/18/1996 Hib Vaccine,unspecified Formulation 05/01/1998,0 09/18/1996 Hpv, Unspecified Formulation 12/04/2008,07/24/20 08,05/11/2008 Inactivated Polio Vaccine 11/08/2000 Influenza Vaccine Quadrivalent [...] Comments Hepatitis C Virus (HCV) Screening 1995 Pap Smear 11/14/2019 11/13/2016 Influenza Immunization (#1) 2025 10/20/2019, 0 06/04/2014 SARS-COV-2 Immunization ( season) 2025 10/14/2021, 09/23/2021 DTaP/Tdap/Td Immunization (9 - Td or Tdap) 03/27/2031 03/27/2021, 04/01/2020, 02/16/2006, Additional history exists Td Immunization Every 10 Years (Adults With 1 Tdap) 03/27/2031 03/27/2021, 04/01/2020, 02/16/2006 Respiratory Syncytial Virus (RSV) Immunization (Adult) (1 - 1-dose 75+ series) 2070 Hepatitis B Immunization Completed 996, 1995, 1995 Human Papillomavirus (HPV) Immunization Completed 12/04/2008, 07/24/2008, 05/11/2008 Meningococcal Immunization (ACWY) Completed 06/02/2013, 05/11/2008 Pneumococcal Immunization Combined Aged Out No longer eligible based on patient's age to complete this topic Rotavirus Immunization Aged Out No lo nger eligible based on patient's age to complete this topic Procedures Procedure Name Priority Date/Time Associated Diagnosis Comments PATHOLOGY CYTOLOGY SWABBER Routine 11/13/2016 4:57 PM CHILD ADOLESCENT PSYCHIATRIST Well woman exam with routine gynecological exam Cervical cancer screening from Last 3 Months or Most Recently Relevant to Health Maintenance Results * PATHOLOGY CYTOLOGY SWABBER (11/13/2016 4:57 PM CHILD ADOLESCENT PSYCHIATRIST) SPECIMEN ADEQUACY Satisfactory for evaluation. Endocervical cells present. 11/27/2016 2:49 PM CDT [facility] DESCRIPTIVE DIAGNOSIS Negative for intraepithelial lesions. No dysplastic cells present. 11/27/2016 2:49 PM CDT [facility] at 1449 CDT AUTOMATED EXAMINATION Analysis of this sample has been assisted by an automated imaging and review system ([employer], [employer], [place], [place]). This case is further evaluated and finalized by a hoisting engineer pile driving and/or pathologist. 11/27/2016 2:49 PM CDT [facility] DISCLAIMER The PAP smear is [...] unless clinically indicated. 11/27/2016 2:49 PM CDT [facility] Case Report Gynecologic Cytology Report Case: [id number] Authorizing Provider: Mello Sellers MD Collected: 11/13/2016 04:57 PM Ordering Location: [facility] Received: 11/15/2016 12:43 PM [facility] First Screen: Kristen Thakur Specimen: Cervical/Endocervic al, liquid based thin layer preparation (Thin Prep ), CERVIX/ENDOCERVIX 11/27/2016 2:49 PM CDT [facility] HPV Reflex if ASCUS? Yes 11/27/2016 2:49 PM CDT [facility] Specimen of unknown material (specimen) CERVIX UTERI STRUCTURE / Unknown 11/13/2016 4:57 PM CHILD ADOLESCENT PSYCHIATRIST 11/15/2016 12:43 PM CHILD ADOLESCENT PSYCHIATRIST us Mello Sellers MD PATHOLOGY/CYTOLOGY ORDERABL ES Final Result [facility] [address] [place] [address], from Last 3 Months or Most Recently Relevant to Health Maintenance Insurance MEDICAID [facility]
[2025-05-15 12:16] VITALS: BP 125/57; PULSE 92; RESP 20; TEMP 37.6; O2SAT 100
--- NOTE | 2025-05-15 12:21 | ED.URI ---
HPI - URI/Sore Throat General Stated Complaint: cold/flu/passed out this morning Time Seen by Provider: 05/15/25 12:22 Source: patient Mode of arrival: ambulatory Limitations: no limitations History of Present Illness HPI Narrative: Amber is a 29-year-old female patient presenting to the clinic today with complaints of fatigue, weakness, nasal congestion, cough, sore throat, feeling feverish, body aches x2 days. She reports she passed out this morning around 10:00 a.m. Fell and hit her right forehead- has small carlos on the forehead- Denies any headache or acute neck pain. MD elicited complaint: sore throat and nasal congestion Related Data Allergies Allergy/AdvReac Type Severity Reaction Status Date / Time No Known Allergies Allergy Verified 09/23/24 17:05 Review of Systems Review of Systems: Pertinent positives per HPI. Patient denies any rash, headache, visual changes, dizziness, shortness of breath, chest pain, palpitations, nausea, vomiting, diarrhea, constipation, abdominal pain, or any urinary issues. PMFSH Past Medical History Medical History Anxiety and depression Ectopic Obesity Spotting affecting Surgical History Surgical History Hx of bilateral salpingectomy History of appendectomy Family History Family History Other Unknown family medical history Social History Social History Smoking status: Never smoker Alcohol intake: never Alcohol use details: SOCIAL Substance use: never Substance use type: does not use Living arrangements: with family Additional living arrangements comments: CHILDREN Gender identity (if verbalized by the patient): Female Sexual Orientation (if Verbalized by the Patient): Straight or Heterosexual Spiritual care concerns: No Comments At the time of my signature, I reviewed and agree with the nursing past medical, surgical, social, and family history. There is no relevant family history pertinent to the patient complaint. Exam Narrative: General: Well-developed, well nourished, in no apparent distress Head: Normocephalic, atraumatic Eyes: Pupils equally round and reactive to light bilaterally, EOM intact, sclera and conjunctive clear, no discharge, lids normal Ears: TMs intact and clear, ear canals clear, no drainage, grossly hearing normal. Nose: Nares patent, no discharge, no inflammation, no sinus tenderness. Mouth: Oropharynx red with bilateral tonsillar enlargement with exudate without masses, good dentition, MMM. Tongue midline, even rise and fall of uvula Neck: Supple, trachea midline, enlargement of anterior cervical nodes, no thyroid masses or goiter palpable. Cardio: Regular rate and rhythm, s1 and s2 normal, no murmur appreciated. Resp: Clear to auscultation bilaterally anteriorly and posteriorly, no rhonchi, rales, wheezing or rubs Musculoskeletal: No deformity, non-tender to palpation, grossly normal range of motion, muscle strength strong and equal, peripheral pulse strong, no edema, no cyanosis, normal gait and station Neuro: Alert and oriented x4 with normal speech, no focal deficits, cranial nerves I through XII intact, muscle strength 5 out of 5, sensation intact bilaterally, negative Romberg test Course Course Emergency Course: Portions of this record may have been created with voice recognition software. Level of Care: Express Care Visit Vital Signs Vital signs: Vital Signs Temperature 37.6 C 05/15/25 12:16 Pulse Rate 92 05/15/25 12:16 Respiratory Rate 20 05/15/25 12:16 Blood Pressure 125/57 L 05/15/25 12:16 Pulse Oximetry 100 05/15/25 12:16 Oxygen Delivery Room Air 05/15/25 12:16 Temperature 37.6 C 05/15/25 12:16 Pulse Rate 92 05/15/25 12:16 Respiratory Rate 20 05/15/25 12:16 Blood Pressure 125/57 L 05/15/25 12:16 Pulse Oximetry 100 05/15/25 12:16 Oxygen Delivery Room Air 05/15/25 12:16 Vital signs reviewed MDM - URI/Sore Throat MDM Narrative Medical decision making narrative: At the time of visit patient is resting comfortably on the exam table. Patient appears to be nontoxic. EKG: EKG shows normal sinus rhythm with a heart rate of 84 beats per minute. No ST elevation, depression, or T-wave inversion noted no comparison EKG Labs: Blood sugar was 111. Urinalysis shows trace of leukocytes, blood, and protein. We will send urine for culture. Orthostatic blood pressures: Lying blood pressure is 114/52 with heart rate of 87, sitting blood pressure is 124/56 with a heart rate of 100, standing blood pressure is 116/55 with a heart rate of 95. Plan: Patient has strep pharyngitis, syncopal episode, and possible UTI. Patient denies any headache at this time. Will send in prescription for Augmentin which will cover for strep pharyngitis and also cover UTI. Supportive measures were discussed with the patient and they voiced understanding discharge instructions and agrees to treatment plan. Return precautions reviewed Differential Diagnosis Differential diagnosis: Likely upper respiratory infection, otitis media, sinusitis, viral infection, bronchitis, influenza, pharyngitis and other (COVID) Lab Data Labs: Lab Results 05/15/25 05/15/25 Range/Units 12:30 12:37 POC Capillary Glucose 111 H (65-105) mg/dl POC Urine Color Yellow POC Urine Clarity Cloudy POC Urine pH 6.0 POC Ur Specif [place] 1.030 POC Urine Protein 2+ (Negative) POC Ur Glucose (UA) Negative (Negative) POC Urine Ketones Negative (Negative) POC Urine Blood 2+ (Negative) POC Urine Nitrite Negative (Negative) POC Urine Bilirubin Negative (Negative) POC Urine Urobilinogen 1.0 POC U Leukocyte Esteras Trace (Negative) POC Influenza A Ag Negative (Negative) POC Influenza B Ag Negative (Negative) POC SARS CoV-2 Ag Negative (Negative) POC Grp A Strep Screen Positive (Negative) ECG Data EKG #1: Attestation: I personally reviewed and interpreted this ECG as follows: ECG completion date: 05/15/25 ECG completion time: 12:40 Prior ECG tracings: not available for review Interpretation: EKG shows normal sinus rhythm with a heart rate of 84 beats per minute. No ST elevation, depression, or T-wave inversion. Pr interval is 151 milliseconds, QRS durations 98 milliseconds, QT-QTC 339-380 milliseconds, P-R-T axis is 50 41 22 Discharge Plan Discharge Clinical Impression: Episode of syncope, Acute streptococcal pharyngitis, UTI (urinary tract infection) Patient Disposition: Home Condition: Stable Instructions: Antibiotic Form, Urinary Tract Infection in Women (ED), Strep Throat (ED), Syncope (ED) Additional Instructions: Test results: Strep test was positive in the clinic today. COVID and influenza testing was negative. EKG was reassuring in the clinic today Blood sugar was 111 Orthostatics within normal limits. Urinalysis shows a trace of leukocytes, blood, and 2+ protein. We will send urine for culture Head injury instructions: Tylenol as needed for headache for the first 24 hours then may take Ibuprofen, Increase fluids and stay well hydrated. Avoid taking any sedative medications such as muscle relaxers, benadryl, benzos, or narcotic pain medication. Watch for red flag symptoms such as confusion, lethargy, nausea/vomiting, worsening of headache, visual changes, increase in dizziness, or any stroke-like symptoms. If these symptoms develop go to the Emergency Room immediately. Reduce stimuli- lights, computers, videogames, smart phones, tv, and noise over the next 2 days. Increase stimuli gradually. If headache worsens with stimuli reduce stimuli to tolerable level. Follow up with your PCP in 5- 7 days if symptoms persist as post-concussion syndrome treatment may need to be initiated. URI/strep discharge instructions: Change her toothbrush in 24 hours after initiation of the antibiotics Increase fluids and stay well hydrated May take Tylenol or motrin as directed on bottle for pain/fever May use Flonase 1 spray in each nare daily May take OTC antihistamines such as Zyrtec or Claritin daily as directed on bottle May apply Vicks vapor rub to chest to open sinuses Sinus rinses for congestion Cepacol spray, cough drops, throat lozenges, warm tea with honey/lemon, gargle salt water to soothe throat BRAT diet for diarrhea Clear liquids x 24 hours then advance as tolerated for nausea/vomiting Follow-up with your PCP in 3-5 days if symptoms persist UTI discharge instructions: Increase fluids and stay well hydrated Wipe front to back. May use wet wipes. Avoid tub baths If sexually active- pee before and after intercourse. Wear cotton panties Avoid tight clothing up against the genitals Follow up with your PCP in 1 week if symptoms persist. Go to the ED if you develop a worsening in your condition- high fever not controlled by Tylenol or Motrin, dehydration, weakness, lethargy, shortness of breath, or chest pain. Follow up with your PCP in 3-5 days if symptoms persist. Patient Language: Italian Prescriptions: New amoxicillin-pot clavulanate 875-125 mg tablet 1 tablet PO Q12H 10 Days Qty: 20 0RF Follow-up/Referrals: PHYSICIAN NOT ON STAFF,NONSTAFF [Primary Care Provider] Stand Alone Forms: Work/School Release IP Time of Disposition: 13:08 Quality NIHSS Nursing Documentation ED NIHSS nursing documentation: reviewed/agree
--- NOTE | 2025-05-15 12:29 | ECG_ITS ---
Test Date: 2025-05-15 12:40:41 Measurements Intervals [place] Rate: 84 P: 50 [place]: 151 QRS: 41 QRSD: 98 T: 22 QT: 339 QTc: 403 Interpretive Statements SINUS RHYTHM NORMAL ELECTROCARDIOGRAM WARNING: DATA QUALITY MAY AFFECT INTERPRETATION No previous ECG available for comparison Electronically Signed On 05-15-2025 16:03:25 CDT by Jem Manning M.D.
[2025-05-15 12:40] VITALS: BP 114/52; PULSE 87
[2025-05-15 12:45] VITALS: BP 124/56; PULSE 100
[2025-05-15 12:50] VITALS: BP 116/55; PULSE 95
[2025-05-15 13:05] LABS: EDCOVIDSCREEN Negative (Negative); EDINFLUASCREEN Negative (Negative); EDINFLUBSCREEN Negative (Negative); EDUAAPPEAR Cloudy; EDUABILI Negative (Negative); EDUABLOOD 2+ (Negative); EDUACOLOR1 Yellow; EDUAGLUCOSE Negative (Negative); EDUAKETONE Negative (Negative); EDUALEUKO Trace (Negative); EDUANITRATE Negative (Negative); EDUAPH 6.0; EDUAPROTEIN 2+ (Negative); EDUASPGRAVITY 1.030; EDUAUROBILI 1.0
[2025-05-15 13:06] LABS: EDSTREPNEGPOS1 Positive (Negative)
== END 2025-05-15 13:10 | disposition home or self-care (01) ==
PROVIDERS: Emergency Provider Nurse Practitioner Family
DX: R55 Syncope and collapse (principal); J02.0 Streptococcal pharyngitis; N39.0 Urinary tract infection, site not specified; Z20.822 Contact with and (suspected) exposure to COVID-19; E66.9 Obesity, unspecified; Z68.32 Body mass index [BMI] 32.0-32.9, adult
CPT/HCPCS: 81003; 82948; 87086; 87426; 87804; 87880; 93005; 99213; G0463